=== PATIENT | female | born 1950 | race Caucasian/White ===

== ENCOUNTER 2019-05-29 18:04 | Emergency (ER) | payer MEDICARE, SELFPAY ==
[2019-05-29 18:17] VITALS: BP 152/81; PULSE 80; RESP 18; TEMP 36.6; O2SAT 99
--- NOTE | 2019-05-29 18:30 | ED.URI ---
HPI - URI/Sore Throat General Chief Complaint: Upper Respiratory Infection Stated Complaint: cough/sore throat/drainage/ History of Present Illness HPI Narrative: This is a 69-year-old female comes in complaining of cough congestion eye drainage to bilateral eyes. Patient states that she has congestion and not feeling very well is been going on for 1 to 2 weeks. Related Data Home Medications Medication Instructions Recorded Confirmed furosemide 20 mg tablet 20 mg PO QAM 01/29/19 05/29/19 glimepiride 2 mg tablet 2 mg PO BID tablet 01/29/19 05/29/19 levothyroxine 200 mcg tablet 200 mcg PO DAILY 01/29/19 05/29/19 losartan 100 mg tablet 100 mg PO DAILY 01/29/19 05/29/19 metformin 1,000 mg tablet 1,000 mg PO BID 01/29/19 05/29/19 Allergies Allergy/AdvReac Type Severity Reaction Status Date / Time No Known Allergies Allergy Verified 05/29/19 18:09 Review of Systems Review of Systems: Narrative: CONSTITUTIONAL: Denies fever, chills, or sweats. EYES: Denies visual changes, redness, or discharge. ENT: Reports rhinorrhea, congestion, sore throat, or otalgia. CARDIOVASCULAR:Denies chest pain, palpitations, or edema. RESPIRATORY: Reports cough or dyspnea. GASTROINTESTINAL: Denies abdominal pain, nausea, vomiting, or diarrhea. GENITOURINARY: Denies dysuria or hematuria. SKIN:[Denies rash or itching. MUSCULOSKELETAL:Denies back pain, joint pain, or myalgia. NEUROLOGIC: Denies headache, numbness, or weakness. PSYCHIATRIC:Denies anxiety or depression PMF Past Medical History Medical History (Updated 05/29/19 @ 19:49 by Tanisha Kulkarni NP) Postmenopausal Type 2 diabetes mellitus with diabetic neuropathy Social History Social History Smoking status: Never smoker Alcohol intake: never Gender identity (if verbalized by the patient): Female Comments At time as signature, I have reviewed and agree with nursing past medical, social, surgical and family history. Please see nursing chart for further information. There is no relevant family history pertinent to the presenting complaint. Exam Narrative: Exam Narrative: GENERAL:Well-appearing, well-nourished, and in no acute distress. HEAD:Normocephalic, atraumatic. EYES: PERRLA and EOMI. ENT: Nares clear with congestion, moderate rhinorrhea or epistaxis. Mucous membranes moist. Bilateral eye erythema conjunctivitis with drainage NECK: Supple. CHEST: Clear to auscultation. No respiratory distress. HEART: Regular rate and rhythm. No murmur heard. Normal peripheral pulses. ABDOMEN: Soft, nontender, nondistended, normal active bowel sounds. EXTREMITIES: Normal range of motion. No edema. SKIN: Warm, dry, no rash. NEURO: No focal deficits. Alert and oriented x3. Course Vital Signs Vital signs: Vital Signs Temperature 97.8 F 05/29/19 18:17 Pulse Rate 80 05/29/19 18:17 Respiratory Rate 18 05/29/19 18:17 Blood Pressure 152/81 H 05/29/19 18:17 Pulse Oximetry 99 05/29/19 18:17 Temperature 97.8 F 05/29/19 18:17 Pulse Rate 80 05/29/19 18:17 Respiratory Rate 18 05/29/19 18:17 Blood Pressure 152/81 H 05/29/19 18:17 Pulse Oximetry 99 05/29/19 18:17 MDM - URI/Sore Throat Differential Diagnosis Differential diagnosis: Likely upper respiratory infection, otitis media, sinusitis, viral infection, bronchitis and pharyngitis Discharge Plan Discharge Clinical Impression: Abscessed tooth, Lymphadenopathy Conjunctivitis Qualifiers: Conjunctivitis type: acute Acute conjunctivitis type: unspecified Laterality: bilateral Qualified Code(s): H10.33 - Unspecified acute conjunctivitis, bilateral Patient Disposition: Home, Self-Care Condition: Stable Instructions: Antibiotic Form, Dental Abscess (ED), Allergic Rhinitis (ED) Prescriptions: New fluticasone propionate [Flonase Allergy Relief] 50 mcg/actuation spray,suspension 1 spray NASAL Q12H Qty: 19.8 RF: 0 amoxicillin
== END 2019-05-29 18:51 | disposition home or self-care (01) ==
PROVIDERS: Emergency Provider Nurse Practitioner Family; PCP Internal Medicine
DX: K04.7 Periapical abscess without sinus (principal); R59.1 Generalized enlarged lymph nodes; H10.33 Unspecified acute conjunctivitis, bilateral; E11.42 Type 2 diabetes mellitus with diabetic polyneuropathy; E78.00 Pure hypercholesterolemia, unspecified; I10 Essential (primary) hypertension; Z96.641 Presence of right artificial hip joint; Z96.642 Presence of left artificial hip joint
CPT/HCPCS: 99213; G0463

== ENCOUNTER 2019-09-22 13:25 | Outpatient (CLI) | payer MEDICARE, SELFPAY ==
--- NOTE | ~2019-09-22 | DEXA_ITS ---
Bone Density Report Name: Minnie Lloyd Age: 69 Sex: Female Ethnicity: White Date of : 1950 Indication: postmenopausal; height loss; Referring Provider: Bren Vargas Study: Bone densitometry was performed. Exam Date: September 22, 2019 Accession number: [id number] Bone Density: Region BMD T-score Z-score Classification AP Spine (L1-L4) 1.393 3.1 5.3 Normal Femoral Neck (Left) 1.128 2.5 4.4 Normal Total Hip (Left) 1.280 2.8 4.4 Normal Total Hip Bilateral Avg 1.251 2.6 4.2 Normal Femoral Neck (Right) 1.054 1.8 3.7 Normal Total Hip (Right) 1.221 2.3 3.9 Normal World Health Organization criteria for BMD impression classify patients as: Normal (T-score at or above -1.0), Osteopenia (T-score between -1.0 and -2.5), or Osteoporosis (T-score at or below -2.5). 10-year Fracture Risk: FRAX not reported because: All T-scores for Spine Total, Hip Total, Femoral Neck at or above -1.0 Previous Exams: Region Exam Age BMD T-score BMD Change BMD Change Date g/cm2 vs Baseline vs Previous AP Spine(L1-L4) 09/22/2019 69 1.393 3.1 0.231(19.9%)# 0.231(19.9%)# 04/04/2009 59 1.162 1.0 Total Hip(Left) 09/22/2019 69 1.280 2.8 0.076(6.3%)# 0.076(6.3%)# 04/04/2009 59 1.204 2.2 Total Hip(Right) 09/22/2019 69 1.221 2.3 0.024(2.0%)# 0.024(2.0%)# 04/04/2009 59 1.197 2.1 *Denotes significance at 95% confidence level, LSC for AP Spine = 0.022 g/cm2, LSC for Total Hip = 0.027 g/cm2 Clinical Information Provided by Patient: Has used the following medications: Vitamin D Patient maximum height was 66 Menopause Age: 48 No regular weight bearing exercise Drinks caffeinated beverages Onset of menses at age 10 Number of children 6 Impression: The patient has normal bone mass. No significant bone loss was observed. Discussion: LOW RISK OF FRACTURE; BONE DENSITY IS WELL ABOVE THE MINIMUM DESIRABLE LEVEL AND ABOVE AVERAGE FOR AGE AND SEX AT ALL SKELETAL SITES TESTED. This person's bone density is above expected limits for age and sex. This is rarely clinically significant, but should be pursued if there are significant musculoskeletal complaints. The patient should follow a healthful lifestyle (good nutrition with adequate calcium and vitamin D, and appropriate weight-bearing exercise). Follow-Up: Consider repeating this study in 5 years or sooner if there is some new clinical indication. Reported by: [facility] on 09/22/2019 1:47:00 PM.
== END 2019-09-22 13:26 | disposition home or self-care (01) ==
LOC: ANHIMG 13:26
PROVIDERS: PCP Internal Medicine; Visit Provider Nurse Practitioner
DX: Z78.0 Asymptomatic menopausal state (principal)
CPT/HCPCS: 77080

== ENCOUNTER 2019-11-10 14:10 | Outpatient (CLI) | payer MEDICARE, SELFPAY ==
--- NOTE | ~2019-11-10 | MM_ITS ---
EXAMINATION: MM screening [facility] BI w leo HISTORY: Screening TECHNIQUE: Craniocaudal and mediolateral oblique 3-D tomosynthesis images were obtained and synthetic 2-D images were generated. CAD analysis was submitted and interpreted. COMPARISON: Comparison to multiple prior studies sequentially, with oldest reviewed study dated 07/04. BREAST PARENCHYMAL COMPOSITION: There are scattered areas of fibroglandular density. FINDINGS: There is no evidence of suspicious mass, calcification, or architectural distortion to sugg est malignancy in either breast. There has been no suspicious interval change. IMPRESSION: 1. No mammographic evidence of malignancy. 2. Recommend routine screening mammography in one year. BI-RADS Category 1: Negative Reviewed, dictated and finalized at location A.
[2019-11-10 16:53] LABS: Alanine Aminotransferase 30 U/L (4-35); Albumin Level 4.1 g/dL (3.5-5.1); Alkaline Phosphatase 90 U/L (38-126); Anion Gap 7 mmol/L (8-16); Aspartate Amino Transferase 28 U/L (14-36); Bilirubin,Total 0.4 mg/dL (0.2-1.3); Blood Urea Nitrogen 17 mg/dL (7-17); Calcium 9.5 mg/dL (8.4-10.2); Carbon Dioxide 24 mmol/L (22-30); Chloride 104 mmol/L (98-107); Cholesterol 167 mg/dL (0-200); Estimated Glomerular Filt Rate > 60; Glucose 275 mg/dL (65-105); HDL Direct 49 mg/dL; Potassium 4.4 mmol/L (3.4-5.0); Sodium 135 mmol/L (137-145); Triglycerides 203 mg/dL (<150)
[2019-11-10 17:04] LABS: LDL Cholesterol Direct 87 mg/dL
[2019-11-10 17:09] LABS: Vitamin D 25 Hydroxy 25.5 ng/mL
[2019-11-10 19:47] LABS: Hemoglobin A1C 9.8 % (<5.7)
== END 2019-11-10 14:11 | disposition home or self-care (01) ==
PROVIDERS: Nurse Practitioner; PCP Internal Medicine; Visit Provider Obstetrics & Gynecology
DX: Z12.31 Encounter for screening mammogram for malignant neoplasm of breast (principal); E11.9 Type 2 diabetes mellitus without complications; E55.9 Vitamin D deficiency, unspecified; E78.2 Mixed hyperlipidemia; E03.9 Hypothyroidism, unspecified
CPT/HCPCS: 36415; 77063; 77067; 80053; 80061; 82306; 83036; 84443

== ENCOUNTER 2019-11-25 16:26 | Outpatient (CLI) | payer MEDICARE, SELFPAY ==
--- NOTE | ~2019-11-25 | XR_ITS ---
EXAMINATION: XR thoracic spine 3V DATE: 11/25/2019 17:04 INDICATION: Generalized upper body pain. TECHNIQUE: 3 views of thoracic spine were obtained. COMPARISON: None. FINDINGS: There is 7 degrees dextrocurvature of thoracic spine. Vertebral body heights are normal. Th ere is mildly decreased disc height at multiple levels in lower thoracic spine. There are endplate os teophytes at all levels with bridging at multiple levels, consistent with diffuse idiopathic skeletal hyperostosis (DISH). A calcified left lung nodule and calcified left hilar and mediastinal lymph nod es are consistent with old granulomatous disease. IMPRESSION: 1. Mild thoracic spondylosis. 2. DISH. Reviewed, dictated and finalized at location A.
--- NOTE | ~2019-11-25 | XR_ITS ---
EXAMINATION: XR lumbar spine 2-3V DATE: 11/25/2019 17:04 INDICATION: Generalized upper body pain. TECHNIQUE: 3 views of lumbar spine were obtained. COMPARISON: CT abdomen and pelvis 05/02/2018 FINDINGS: There is 10 degrees levoscoliosis of lumbar spine. Vertebral body heights are normal. There is mildly decreased disc height at L1-L2, severely decreased disc height at L2-L3 and L3-L4, mildly decreased disc height at L4-L5, and severely decreased disc height at L5-S1. There is multilevel penny re facet joint osteoarthritis. IMPRESSION: 1. Severe lumbar spondylosis. 2. Lumbar levoscoliosis. Reviewed, dictated and finalized at location A.
== END 2019-11-25 16:27 | disposition home or self-care (01) ==
PROVIDERS: PCP Internal Medicine; Visit Provider Internal Medicine
DX: M54.9 Dorsalgia, unspecified (principal); M47.814 Spondylosis without myelopathy or radiculopathy, thoracic region; M48.14 Ankylosing hyperostosis [Forestier], thoracic region; M47.816 Spondylosis without myelopathy or radiculopathy, lumbar region; M41.86 Other forms of scoliosis, lumbar region
CPT/HCPCS: 72072; 72100

== ENCOUNTER 2019-12-03 09:10 | Outpatient (CLI) | payer MEDICARE, SELFPAY ==
--- NOTE | ~2019-12-03 | US_ITS ---
EXAMINATION: US right upper quadrant EXAM DATE: 12/03/2019 09:50 INDICATION: Right upper quadrant pain. TECHNIQUE: Multiple grayscale and Doppler images of the abdomen right upper quadrant were obtained (b y a technologist who performed the scan) and subsequently reviewed. Comparison is made to prior exami nation from 04/16/2018. FINDINGS: The pancreatic head and body are normal in appearance. The pancreatic tail is not visualized. Mildl y echogenic liver parenchyma, hepatic steatosis. There are no focal liver lesions identified. Ther e is no evidence of intrahepatic biliary duct dilation. Portal venous flow was seen in the hepatoped al, normal direction and has normal Doppler waveform. No right-sided hydronephrosis. Common bile duct measures 4-5 mm, which is normal. The gallbladder wall is normal in thickness, with expected amount of distention. No sonographic evidence of pericholecystic fluid. There is no cholel ithiases. Technologist performing exam reports patient did not demonstrate sonographic Cross's sign. Please note that this sign is less reliable in patients who have received pain medication. IMPRESSION: 1. Hepatic steatosis. Reviewed, dictated and finalized at location B. IMPRESSION: 1. Hepatic steatosis.
--- NOTE | ~2019-12-03 | XR_ITS ---
EXAMINATION: XR UGI w barium swallow DATE: 12/03/2019 10:13 INDICATION: Nausea. Chronic right abdominal pain. TECHNIQUE: The patient drank thick barium, gas-producing crystals, and thin barium. Fluoroscopy of th e esophagus, stomach, and proximal small bowel was performed. Fluoroscopy exposure time was 1.0 minut es. The total number of images was 286. Total dose-area product was 4.568 Gy-cm^2. COMPARISON: Upper gastrointestinal series 01/27/2018, CT abdomen and pelvis 05/02/2018 FINDINGS: There is no mass or stricture of the esophagus. Esophageal motility is normal. There is no hiatal hernia. There was no gastroesophageal reflux with provocative maneuvers. The stomach shows a n ormal folding pattern. There is a diverticulum of the second portion of the duodenum. IMPRESSION: 1. No etiology for the patient's symptoms. Reviewed, dictated and finalized at location A.
== END 2019-12-03 09:11 | disposition home or self-care (01) ==
LOC: ANHIMG 09:15
PROVIDERS: PCP Internal Medicine; Visit Provider Internal Medicine
DX: R11.0 Nausea (principal); R10.11 Right upper quadrant pain; K76.0 Fatty (change of) liver, not elsewhere classified
CPT/HCPCS: 74240; 76705

== ENCOUNTER 2019-12-11 14:45 | Outpatient (CLI) | payer MEDICARE, SELFPAY ==
--- NOTE | ~2019-12-11 | XR_ITS ---
EXAMINATION: XR wrist RT min 3V DATE: 12/11/2019 15:09 INDICATION: Medial right wrist pain TECHNIQUE: Posteroanterior, ulnar deviation, oblique, and lateral views of the right wrist were obtai diane. COMPARISON: none FINDINGS: Alignment is normal. No fracture. Mild osteoarthritis at the first carpometacarpal and several of the metacarpophalangeal and interphalangeal joints. Lucency with thin sclerotic margins at the base of t he ulnar styloid process and at the palmar/ulnar aspect of the proximal lunate which could represent degenerative cystic change or chronic erosions. Prominent soft tissue swelling along the ulnar side o f the wrist near the extensor carpi ulnaris groove. IMPRESSION: 1. Lucencies at the lunate and ulnar styloid process which could represent degenerative cystic change , chronic erosions significant inflammatory or crystalline arthropathy. The cystic change at the nallely te could also be related to ulnocarpal impaction although ulnar variance appears neutral. 2. Nonspecific soft tissue swelling at the ulnar aspect of the wrist in the region of the ECU groove. 3. Typical distribution of mild polyarticular osteoarthritis at the right hand. Reviewed, dictated and finalized at location A. IMPRESSION: 1. Lucencies at the lunate and ulnar styloid process which could represent dege nerative cystic change, chronic erosions significant inflammatory or crystallin e arthropathy. The cystic change at the lunate could also be related to ulnocar pal impaction although ulnar variance appears neutral. 2. Nonspecific soft tissue swelling at the ulnar aspect of the wrist in the reg ion of the ECU groove. 3. Typical distribution of mild polyarticular osteoarthritis at the right hand.
--- NOTE | ~2019-12-11 | XR_ITS ---
EXAMINATION: XR chest 2V DATE: 12/11/2019 15:09 INDICATION: Cough. Upper back pain. TECHNIQUE: PA and lateral views of the chest were obtained. COMPARISON: Chest radiograph dated 08/03/[address] dated 07/01/2013 FINDINGS: Eron nodule at the posterior sulcus of the left lower lobe and calcified left hilar and mediastinal lymph nodes consistent with old granulomatous disease. Small left paracardial fat pad. No other airs pace opacities, pulmonary edema, pleural effusion or pneumothorax. The cardiomediastinal silhouette i s normal. Mild thoracic dextrocurvature with bridging osteophytes at multiple levels consistent with diffuse idiopathic skeletal hyperostosis (DISH). IMPRESSION: 1. No acute cardiopulmonary disease. Reviewed, dictated and finalized at location A.
== END 2019-12-11 14:46 | disposition home or self-care (01) ==
PROVIDERS: PCP Internal Medicine; Visit Provider Internal Medicine
DX: R05 Cough (principal); M54.6 Pain in thoracic spine; M25.531 Pain in right wrist; M89.9 Disorder of bone, unspecified; M79.89 Other specified soft tissue disorders; M19.031 Primary osteoarthritis, right wrist
CPT/HCPCS: 71046; 73110

== ENCOUNTER 2020-01-12 14:49 | Outpatient (CLI) | payer MEDICARE, SELFPAY ==
--- NOTE | ~2020-01-12 | CT_ITS ---
EXAMINATION: CT abdomen pelvis wo con EXAM DATE: 01/12/2020 15:17 INDICATION: Right-sided abdominal and back pain. TECHNIQUE: Spiral CT of the abdomen and pelvis was performed without contrast. Axial, coronal and sag ittal images were reviewed. The dose-length product (DLP) for this examination was 1280.24 mGy-cm. The exposure was tailored according to patient size (auto mA exposure control), and iterative reconst ruction (ASIR) was used as additional dose reduction technique. Comparison is made to prior examinati on from 11/30/2018. FINDINGS: There is no nephrolithiasis or hydronephrosis. The uterus is unremarkable. The bladder is unremarkable. The liver, spleen, adrenal glands and pancreas are unremarkable. Gallbladder is un remarkable. No biliary obstruction. There is no retroperitoneal or pelvic lymphadenopathy. There is mild scattered arteriosclerotic disease. There is small left inguinal fat-containing hernia. The appendix is normal. Small duodenal diverticulum. The stomach and small bowel are unremarkable. T here is expected amount of colonic stool. No free intraperitoneal gas. The heart is normal in siz e. There are no pericardial or pleural effusions. The lung bases are unremarkable. There are no os teoblastic or osteolytic lesions identified. IMPRESSION: 1. No nephrolithiasis, hydronephrosis or acute intra-abdominal findings. 2. Small left inguinal fat-containing hernia. Reviewed, dictated and finalized at location B. 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
== END 2020-01-12 14:50 | disposition home or self-care (01) ==
PROVIDERS: PCP Internal Medicine; Visit Provider Internal Medicine
DX: R10.9 Unspecified abdominal pain (principal); K40.90 Unilateral inguinal hernia, without obstruction or gangrene, not specified as recurrent
CPT/HCPCS: 74176

== ENCOUNTER 2020-01-24 13:10 | Outpatient (CLI) | payer MEDICARE, SELFPAY ==
--- NOTE | ~2020-01-24 | MR_ITS ---
EXAMINATION: MR thoracic spine wo con EXAM DATE: 01/24/2020 14:14 INDICATION: Pain in thoracic spine. TECHNIQUE: Multi-sequential, multiplanar MR images of the thoracic spine were obtained without contra st. Sagittal T1, T2, T2 fat saturation, axial T2 weighted images reviewed. There is no prior study for comparison. FINDINGS: There is a large midthoracic hemangioma. Mild mid thoracic dextroscoliosis. Several minimal disc bulges, protrusions of the thoracic spine. No central canal stenosis. T3-4 has mild to moderate right neural foraminal stenosis, no more than mild neural foraminal stenosis at other thoracic level s. The spinal cord signal intensity and intrinsic morphology is normal. Paraspinal soft tissue is unr emarkable. Mild diffuse thoracic facet arthropathy. Moderate sized right anterolateral thoracic endpl ate osteophytes. IMPRESSION: Mild to moderate thoracic spondylosis. Reviewed, dictated and finalized at location A. 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
== END 2020-01-24 13:11 | disposition home or self-care (01) ==
PROVIDERS: PCP Internal Medicine; Visit Provider Internal Medicine
DX: M47.894 Other spondylosis, thoracic region (principal)
CPT/HCPCS: 72146

== ENCOUNTER 2020-07-06 19:49 | Emergency (ER) | payer MEDICARE, SELFPAY ==
--- NOTE | ~2020-07-06 | XR_ITS ---
EXAMINATION: XR chest 1V portable DATE: 07/06/2020 21:21 INDICATION: Cough, congestion and chills. TECHNIQUE: frontal view of the chest was obtained. COMPARISON: Chest radiograph dated 12/11/2019 FINDINGS: The lungs remain clear with no focal airspace opacities, pulmonary edema, pleural effusion or pneumot horax. Heart size is normal. Calcified left hilar and mediastinal lymph nodes consistent with old gra nulomatous disease. IMPRESSION: 1. No acute cardiopulmonary disease. Reviewed, dictated and finalized at location A.
[2020-07-06 19:55] VITALS: BP 153/74; PULSE 88; RESP 18; TEMP 36.9; O2SAT 97
[2020-07-06 22:24] VITALS: BP 148/76; PULSE 78; RESP 18; O2SAT 97
--- NOTE | 2020-07-06 22:34 | ED.GENADULT ---
HPI - General Adult General Chief complaint: Upper Respiratory Infection Stated complaint: Cough/ Home Covid Test Positive Time Seen by Provider: 07/06/20 19:58 Source: patient Mode of arrival: ambulatory Limitations: no limitations History of Present Illness HPI narrative: Patient is a 70-year-old female who presents noting for the last several days she has had upper respiratory symptoms with congestion rhinorrhea headache diarrhea nonproductive cough patient states that she had a positive home test for Covid had another test at work which is pending and then presents today for evaluation for concern for possible pneumonia and Covid patient denies tobacco abuse and on arrival does not appear distressed patient is trying [id number] medications with some improvement denies any vomiting. Related Data Home Medications Medication Instructions Recorded Confirmed furosemide 20 mg tablet 20 mg PO QAM 01/29/19 01/06/20 Allergies Allergy/AdvReac Type Severity Reaction Status Date / Time No Known Allergies Allergy Verified 07/06/20 19:58 Review of Systems Review of Systems: All systems reviewed & are unremarkable except as noted in HPI and below PMFSH Past Medical History Medical History Postmenopausal Type 2 diabetes mellitus with diabetic neuropathy Family History Family History Mother Carcinoma of colon Family history of malignant neoplasm of breast in first degree relative Sibling Family history of malignant neoplasm of breast in first degree relative Carcinoma of colon Father Malignant neoplasm of prostate Family history of congestive heart failure Other Diabetes mellitus Family history of cardiovascular disease Family history of kidney disease Family history of malignant neoplasm Hypertension Social History Social History Smoking status: Never smoker Alcohol intake: never Gender identity (if verbalized by the patient): Female Exam Narrative: Exam Narrative: GENERAL: Well-appearing, obese, and in no acute distress. HEAD: Normocephalic, atraumatic. EYES: PERRLA and EOMI. ENT: Nares clear, no rhinorrhea or epistaxis. Mucous membranes moist. Oropharynx without tonsillar hypertrophy exudate or other lesions. NECK: Supple. No adenopathy or masses. CHEST: Clear to auscultation. No respiratory distress. No wheezes rales or rhonchi HEART: Regular rate and rhythm. No murmur heard. EXTREMITIES: Normal range of motion. No edema. SKIN: Warm, dry, no rash. NEURO: No focal deficits. Alert and oriented x3. Cranial nerves II through XII grossly intact PSYCH: Normal mood and affect. Course Course Emergency Course: Patient presented to emergency department with upper respiratory symptoms will be tested for Covid there was no pneumonia seen on chest x-ray she has had no respiratory distress she has normal oxygenation. Patient will be discharged home with follow-up with primary care to obtain her results. Patient afebrile nontoxic-appearing vital signs and ABCs intact and stable. Provided with reasons to return and felt appropriate for outpatient reevaluation Vital Signs Vital signs: Vital Signs Temperature 98.5 F 07/06/20 19:55 Pulse Rate 88 07/06/20 19:55 Respiratory Rate 18 07/06/20 19:55 Blood Pressure 153/74 H 07/06/20 19:55 Pulse Oximetry 97 07/06/20 19:55 Temperature 98.5 F 07/06/20 19:55 Pulse Rate 78 07/06/20 22:24 Respiratory Rate 18 07/06/20 22:24 Blood Pressure 148/76 H 07/06/20 22:24 Pulse Oximetry 97 07/06/20 22:24 Medical Decision Making MDM Narrative Medical decision making narrative: Patient with upper respiratory symptoms will be tested for Covid no pneumonia seen on exam will follow with primary care pending results sent home with an MDI. Patient will be placed on a
[2020-07-06 22:47] VITALS: BP 132/78; PULSE 80; RESP 18; O2SAT 96
[2020-07-07 14:59] LABS: SARS-CoV-2 RNA PCR Positive
== END 2020-07-06 22:47 | disposition home or self-care (01) ==
PROVIDERS: Emergency Medicine Emergency Medical Services; Emergency Provider Emergency Medicine; PCP Internal Medicine
DX: U07.1 COVID-19 (principal); J06.9 Acute upper respiratory infection, unspecified; E11.40 Type 2 diabetes mellitus with diabetic neuropathy, unspecified
CPT/HCPCS: 71045; 99283; C9803; U0003; U0005

== ENCOUNTER 2020-12-21 14:17 | Outpatient (CLI) | payer MEDICARE, SELFPAY ==
--- NOTE | ~2020-12-21 | MM_ITS ---
EXAMINATION: MM screening [facility] BI w leo HISTORY: Screening TECHNIQUE: Craniocaudal and mediolateral oblique 3-D tomosynthesis images were obtained and synthetic 2-D images were generated. CAD analysis was submitted and interpreted. COMPARISON: Comparison to multiple prior studies sequentially, with oldest reviewed study dated 09/2014. BREAST PARENCHYMAL COMPOSITION: There are scattered areas of fibroglandular density. FINDINGS: There is no evidence of suspicious mass, calcification, or architectural distortion to sugg est malignancy in either breast. There has been no suspicious interval change. IMPRESSION: 1. No mammographic evidence of malignancy. 2. Recommend routine screening mammography in one year. BI-RADS Category 1: Negative Reviewed, dictated and finalized at location A.
== END 2020-12-21 14:18 | disposition home or self-care (01) ==
LOC: ANHIMG 14:19
PROVIDERS: PCP Internal Medicine; Visit Provider Obstetrics & Gynecology
DX: Z12.31 Encounter for screening mammogram for malignant neoplasm of breast (principal)
CPT/HCPCS: 77063; 77067

== ENCOUNTER 2021-01-15 00:11 | Day surgery (SDC) | payer MEDICARE, SELFPAY ==
[2020-12-20 14:34] VITALS: BMI 40.4
[2021-01-15 10:32] VITALS: BP 182/76; PULSE 80; RESP 18; TEMP 36.8; O2SAT 96
--- NOTE | 2021-01-15 10:41 | WPDGICN ---
Assessment and Plan Assessment and plan (1) Family hx of colon cancer: Code(s): Z80.0 - Family history of malignant neoplasm of digestive organs Status: Acute Assessment and Plan: Patient has a family history of colon cancer in both mother sister in knees. Plan is for surveillance colonoscopy now on at least a 5 year intervals in the future. GI Consult Note Consult date/time: 01/15/21 10:41 HPI: Minnie Lloyd is a 70 year old female Presents for screening colonoscopy. Her last exam was 5 years ago. Family history is significant both mother, sister, and niece have had colon cancer. Patient reports that her own weight appetite and bowel movements are normal. She denies abdominal pain. She has had no bleeding. Neoplasia screening to be performed today. Review of Systems Review of Systems: All systems reviewed & are unremarkable except as noted in HPI and below PMFSH Past Medical History Medical History Postmenopausal Type 2 diabetes mellitus with diabetic neuropathy Family History Family History Mother Carcinoma of colon Family history of malignant neoplasm of breast in first degree relative Sibling Family history of malignant neoplasm of breast in first degree relative Carcinoma of colon Father Malignant neoplasm of prostate Family history of congestive heart failure Other Diabetes mellitus Family history of cardiovascular disease Family history of kidney disease Family history of malignant neoplasm Hypertension Social History Social History (Updated 11/23/20 @ 12:56 by Catherine Jackson MA) Smoking status: Never smoker Second hand tobacco smoke exposure: Yes Alcohol intake: never Substance use: never Living arrangements: alone Gender identity (if verbalized by the patient): Female Spiritual care concerns: No Meds Home Medications and Allergies Home Medications Medication Instructions Recorded Confirmed Type lancets 31 gauge #100 each 08/10/19 11/26/20 Rx glimepiride 2 mg tablet 2 mg PO BID #180 tablet 01/06/20 12/20/20 Rx empagliflozin 10 mg-linagliptin 5 1 tablet PO QAM #90 tablet 09/05/20 12/20/20 Rx mg tablet levothyroxine 200 mcg tablet 200 mcg PO DAILY #90 tablet 10/04/20 12/20/20 Rx blood sugar diagnostic 11/23/20 11/26/20 History losartan 100 mg PO DAILY 12/20/20 12/20/20 History metformin 1,000 mg PO BID 12/20/20 12/20/20 History ibuprofen 800 mg tablet 800 mg PO TID PRN #90 tablet 12/21/20 Rx tramadol 50 mg tablet 50 mg PO Q6H PRN #60 tablet 12/21/20 Rx Allergies Allergy/AdvReac Type Severity Reaction Status Date / Time No Known Allergies Allergy Verified 01/15/21 10:31 Vital Signs Vital Signs - 24 hr 01/15/21 10:32 Temperature 98.2 F Pulse Rate 80 Respiratory Rate 18 Blood Pressure 182/76 H Pulse Oximetry 96 Exam Narrative: Physical exam reveals patient to be alert. Vital signs stable. HEENT exam is unremarkable. Patient is anicteric. Lungs are clear to auscultation and percussion. Heart is without murmur or extra sounds. Abdominal exam bowel sounds are present soft nontender with no organomegaly. Digital external rectal exam is normal.
[2021-01-15] MEDS: LACTATED RINGERS 1,000 ML 150 ML IV CONT (10:42)
[2021-01-15 10:46] LABS: Glucose Point of Care 261 mg/dl (65-105)
--- NOTE | 2021-01-15 10:48 | WPDANESEPPF ---
Anes - Initial Pre Proc Eval Procedure: Operation Date: 01/15/21 11:15 Proposed Procedures p Screening Colonoscopy - Wan Rodriguez MD Date/Time: 01/15/21 10:48 Surgeon: Wan Rodriguez MD Pre Op Diagnosis: family hx of colon ca, neoplasm screening Patient Data Age: 70 Gender: F Height: 1.63 m Weight: 105.4 kg Last Vital Signs Temp 36.8 C 01/15/21 10:32 Pulse 80 01/15/21 10:32 Resp 18 01/15/21 10:32 BP 182/76 H 01/15/21 10:32 Pulse Ox 96 01/15/21 10:32 Allergies Allergy/AdvReac Type Severity Reaction Status Date / Time No Known Allergies Allergy Verified 01/15/21 10:31 Home Medications Medication Instructions Recorded Confirmed Type lancets 31 gauge #100 each 08/10/19 01/15/21 Rx glimepiride 2 mg tablet 2 mg PO BID #180 tablet 01/06/20 01/15/21 Rx empagliflozin 10 mg-linagliptin 5 1 tablet PO QAM #90 tablet 09/05/20 01/15/21 Rx mg tablet levothyroxine 200 mcg tablet 200 mcg PO DAILY #90 tablet 10/04/20 01/15/21 Rx blood sugar diagnostic 11/23/20 01/15/21 History losartan 100 mg PO DAILY 12/20/20 01/15/21 History metformin 1,000 mg PO BID 12/20/20 01/15/21 History ibuprofen 800 mg tablet 800 mg PO TID PRN #90 tablet 12/21/20 01/15/21 Rx tramadol 50 mg tablet 50 mg PO Q6H PRN #60 tablet 12/21/20 01/15/21 Rx Laboratory Tests 01/15/21 10:43 POC Capillary Glucose 261 mg/dl H mg/dl (65-105) Patient hx anesthesia problems: none Family hx anesthesia problems: none Results Review: All pre-operative results and documents have been reviewed as part of the pre-operative evaluation. COUNTS INCLUDE 234 BEDS AT THE [facility] Past Medical History Medical History Postmenopausal Type 2 diabetes mellitus with diabetic neuropathy Family History Family History Mother Carcinoma of colon Family history of malignant neoplasm of breast in first degree relative Sibling Family history of malignant neoplasm of breast in first degree relative Carcinoma of colon Father Malignant neoplasm of prostate Family history of congestive heart failure Other Diabetes mellitus Family history of cardiovascular disease Family history of kidney disease Family history of malignant neoplasm Hypertension Social History Social History Smoking status: Never smoker Second hand tobacco smoke exposure: Yes Alcohol intake: never Substance use: never Living arrangements: alone Gender identity (if verbalized by the patient): Female Spiritual care concerns: No Anes - Eval Final PreProcedure Day of Procedure 01/15/21 10:48 Patient weight: morbidly obese Heart: regular rate and rhythm Lungs: clear to auscultation Airway: Mallampati scale class II Neurological: alert and oriented Last oral intake: >/= 8 hours ASA classification: III Emergent: no Anesthetic plan: proceed Anesthesia type and monitoring: general GIVS and standard monitoring Results Review: All pre-operative results and documents have been reviewed as part of the pre-operative evaluation. Informed Consent: The patient's anesthetic plan and its attendant risks and benefits were discussed with the patient/family/POA. Questions were solicited and answers provided to the satisfaction of the patient/family/POA.
[2021-01-15 11:04] VITALS: BP 115/62; PULSE 73; RESP 19; O2SAT 94
[2021-01-15 11:14] VITALS: BP 120/85; PULSE 73; RESP 18; O2SAT 97
[2021-01-15 11:24] VITALS: BP 161/83; PULSE 71; RESP 22; O2SAT 98
== END 2021-01-15 11:51 | disposition home or self-care (01) ==
PROVIDERS: PCP Internal Medicine; Visit Provider Internal Medicine Gastroenterology
PROC: 0DJD8ZZ Inspection of Lower Intestinal Tract, Via Natural or Artificial Opening Endoscopic (ICD-10-PCS; CPT 45378; principal; 2021-01-15 11:15)
DX: Z12.11 Encounter for screening for malignant neoplasm of colon (principal); Z80.0 Family history of malignant neoplasm of digestive organs; K64.8 Other hemorrhoids; K63.5 Polyp of colon; E03.9 Hypothyroidism, unspecified; Z79.84 Long term (current) use of oral hypoglycemic drugs; E11.40 Type 2 diabetes mellitus with diabetic neuropathy, unspecified; E66.01 Morbid (severe) obesity due to excess calories; Z68.39 Body mass index [BMI] 39.0-39.9, adult
CPT/HCPCS: 45385; 82948; 88305; J2704; J7120

== ENCOUNTER → 2021-05-21 15:39 | Outpatient (CLI) | payer MEDICARE, SELFPAY ==
--- NOTE | ~2021-05-21 | XR_ITS ---
XR ankle RT 2V DATE: 05/21/2021 16:16 INDICATION: Right ankle and foot pain TECHNIQUE: 2 views COMPARISON: None FINDINGS: There is very prominent plantar and posterior calcaneal enthesopathy without erosive change or periostitis. There is osteoarthritic change at the tibiotalar joint. No fracture or dislocation of the ankle or di sruption of the ankle mortise is detected. No periosteal reaction or bone destruction. IMPRESSION: Tibiotalar osteoarthritis Prominent plantar and posterior calcaneal enthesopathy Reviewed, dictated and finalized at location A.
--- NOTE | ~2021-05-21 | XR_ITS ---
XR foot RT min 3V DATE: 05/21/2021 16:16 INDICATION: Right foot pain TECHNIQUE: 4 views COMPARISON: None FINDINGS: There is dorsal soft tissue swelling of the forefoot. There is a prominent plantar and posterior calcaneal enthesopathy without evidence of erosive change or periosteal reaction. There is tibiotalar osteoarthritis. There is organized linear periosteal reaction along the lateral aspect of the proximal to mid shaft o f the fourth metatarsal bone likely due to chronic stress fracture. No recent fracture or dislocation . No bone destruction is evident. No erosive change. Mild osteophytic change at the first, second and third metatarsophalangeal joints. IMPRESSION: Dorsal soft tissue swelling of the forefoot Chronic stress fracture of fourth metatarsal shaft Mild osteoarthritis at first through third metatarsophalangeal joints and tibiotalar joint Prominent plantar and posterior calcaneal enthesopathy Reviewed, dictated and finalized at location A. IMPRESSION: Dorsal soft tissue swelling of the forefoot Chronic stress fracture of fourth metatarsal shaft Mild osteoarthritis at first through third metatarsophalangeal joints and tibio talar joint Prominent plantar and posterior calcaneal enthesopathy
== END ==
PROVIDERS: PCP Internal Medicine; Visit Provider Nurse Practitioner
DX: M19.071 Primary osteoarthritis, right ankle and foot (principal); M77.31 Calcaneal spur, right foot
CPT/HCPCS: 73600; 73630

== ENCOUNTER 2022-01-03 15:38 | Outpatient (CLI) | payer MEDICARE, SELFPAY ==
--- NOTE | ~2022-01-03 | MM_ITS ---
EXAMINATION: MM screening louis BI w leo HISTORY: Screening mammogram, family history of breast cancer in her mother and sister. TECHNIQUE: Craniocaudal and mediolateral oblique 3-D tomosynthesis images were obtained and synthetic 2-D images were generated. CAD analysis was submitted and interpreted. COMPARISON: 12/21/2020, 11/10/2019, 10/20/2018 BREAST PARENCHYMAL COMPOSITION: There are scattered areas of fibroglandular density. FINDINGS: Scattered benign-appearing calcifications are present. No suspicious mass, calcification, o r architectural distortion are identified in either breast to suggest malignancy. There has been no s uspicious interval change. IMPRESSION: 1. No mammographic evidence of malignancy. 2. Recommend routine screening mammography in one year. BI-RADS Category 2: Benign finding(s). Reviewed, dictated and finalized at location A.
== END 2022-01-03 15:39 | disposition home or self-care (01) ==
PROVIDERS: PCP Internal Medicine; Visit Provider Obstetrics & Gynecology
DX: Z12.31 Encounter for screening mammogram for malignant neoplasm of breast (principal)
CPT/HCPCS: 77063; 77067

== ENCOUNTER 2022-04-22 16:03 | Outpatient (CLI) | payer OTHER, SELFPAY ==
--- NOTE | ~2022-04-22 | XR_ITS ---
EXAMINATION: XR chest 2V Exam Date/Time: 04/22/2022 16:18 [employer] [employer] HISTORY: Z01.818 - Encounter for other preprocedural examination Comparison: 07/06/2020. RESULT: Lines, tubes, and devices: None. Lungs and pleura: Clear. Calcified left lower lobe granuloma. Cardiomediastinal silhouette: Stable. Calcified left hilar and mediastinal nodes. Other: No acute osseous or upper abdominal finding. IMPRESSION: No acute cardiopulmonary process. Reviewed, dictated and finalized at location K. [facility]
--- NOTE | 2022-04-22 16:35 | ECG_ITS ---
Measurements Intervals [place] Rate: 60 P: 64 TX: 162 QRS: -19 QRSD: 80 T: 56 QT: 417 QTc: 417 Interpretive Statements SINUS RHYTHM NO PREVIOUS ECG AVAILABLE FOR COMPARISON Electronically Signed On 04-23-2022 11:25:47 PROMOTIONAL REPRESENTATIVE by Amy Magallon M.D.
== END 2022-04-22 16:04 | disposition home or self-care (01) ==
PROVIDERS: PCP Internal Medicine; Visit Provider Nurse Practitioner Family
DX: Z01.818 Encounter for other preprocedural examination (principal)
CPT/HCPCS: 71046; 93005

== ENCOUNTER 2022-07-15 06:30 | Emergency (ER) | payer OTHER, SELFPAY ==
--- NOTE | ~2022-07-15 | XR_ITS ---
EXAMINATION: XR femur LT min 2V DATE: 07/15/2022 07:51 INDICATION: Fall. TECHNIQUE: 2 views of left femur on 5 radiographs were obtained. COMPARISON: Left knee radiographs 04/25/2008 FINDINGS: There is a total left knee arthroplasty with patellar resurfacing in near-anatomic alignmen t. No periprosthetic lucency to suggest loosening or infection. No fracture. There is severe left hip osteoarthritis. There is a small knee joint effusion. IMPRESSION: 1. Total left knee arthroplasty in near-anatomic alignment. 2. Small left knee joint effusion. 3. Severe left hip osteoarthritis. Reviewed, dictated and finalized at location A.
--- NOTE | ~2022-07-15 | XR_ITS ---
EXAMINATION: XR_CERV2-3V_CR DATE: 07/15/2022 07:51 INDICATION: Neck pain. TECHNIQUE: 3 views of cervical spine were obtained. COMPARISON: None. FINDINGS: There is 2 mm retrolisthesis of C5 on C6 and 2 mm anterolisthesis of C6 on C7 and C7 on T1. Vertebral body heights are normal. There is mildly decreased disc height at C3-C4 and C4-C5 and penny rely decreased disc height at C5-C6. There is multilevel facet joint osteoarthritis, severe at multip le levels. There is mild central canal stenosis at C5-C6 and C6-C7. No prevertebral soft tissue swell ing. IMPRESSION: 1. Severe cervical spondylosis. Reviewed, dictated and finalized at location A.
--- NOTE | ~2022-07-15 | XR_ITS ---
EXAMINATION: XR knee RT 3V DATE: 07/15/2022 07:51 INDICATION: Fall. TECHNIQUE: 3 views of right knee were obtained. COMPARISON: Radiographs 05/22/2009 FINDINGS: There is a total right knee arthroplasty with patellar resurfacing in near-anatomic alignme nt. No periprosthetic lucency to suggest loosening or infection. No fracture. No knee joint effusion. IMPRESSION: 1. Total right knee arthroplasty in near-anatomic alignment. Reviewed, dictated and finalized at location A.
--- NOTE | ~2022-07-15 | XR_ITS ---
EXAMINATION: XR wrist LT min 3V DATE: 07/15/2022 07:51 INDICATION: Left wrist pain. Fall. TECHNIQUE: 4 views of left wrist were obtained. COMPARISON: Left wrist radiographs 01/27/2018 FINDINGS: Bone alignment is normal. No acute fracture. There is an old fracture deformity of proximal pole of scaphoid. There is mild osteoarthritis of triscaphe joint and moderate osteoarthritis of fir st carpometacarpal joint. There is mild osteoarthritis of some of the metacarpophalangeal joints. The re are dystrophic calcifications distal to ulna. IMPRESSION: 1. Polyarticular osteoarthritis. Reviewed, dictated and finalized at location A.
[2022-07-15 06:50] VITALS: BP 154/76; PULSE 68; RESP 15; TEMP 36.7; O2SAT 96
--- NOTE | 2022-07-15 07:12 | ED.FALL ---
HPI - Fall General Chief Complaint: Fall Stated Complaint: fell right knee, shoulder, wrist pain Time Seen by Provider: 07/15/22 06:58 History of Present Illness HPI Narrative: This is a 72-year-old female with past history of hypertension and diabetes, who presents the emergency department after a ground-level fall. Patient states she was walking in the parking lot when she tripped, landing on the right knee and left wrist. She complains of 8/10 dull right knee pain and left wrist pain. She states she was able to walk with assistance after the fall. She denies chest pain, shortness of breath, palpitations or lightheadedness prior to or since the fall. Related Data Home Medications Medication Instructions Recorded Confirmed blood sugar diagnostic 11/23/20 05/02/22 biotin 10 mg tablet 10 mg PO DAILY 01/18/22 05/02/22 gabapentin 300 mg capsule 300 mg PO QHS 07/15/22 Allergies Allergy/AdvReac Type Severity Reaction Status Date / Time No Known Allergies Allergy Verified 07/15/22 06:31 Review of Systems Review of Systems: CONSTITUTIONAL: Denies fever, chills, or sweats. CARDIOVASCULAR: Denies chest pain, palpitations, or edema. RESPIRATORY: Denies cough or dyspnea. GASTROINTESTINAL: Denies abdominal pain, nausea, vomiting, or diarrhea. GENITOURINARY: Denies dysuria or hematuria. MUSCULOSKELETAL: Right knee pain, left wrist pain, left thigh pain denies back pain, or myalgia. NEUROLOGIC: Denies headache, numbness, dizziness, or weakness. PSYCHIATRIC: Denies anxiety or depression. [facility] Past Medical History Medical History Essential (primary) hypertension Hypothyroidism Mixed hyperlipidemia Postmenopausal Type 2 diabetes mellitus with diabetic neuropathy Family History Family History Mother Carcinoma of colon Family history of malignant neoplasm of breast in first degree relative Sibling Family history of malignant neoplasm of breast in first degree relative Carcinoma of colon Father Malignant neoplasm of prostate Family history of congestive heart failure Other Diabetes mellitus Family history of cardiovascular disease Family history of kidney disease Family history of malignant neoplasm Hypertension Social History Social History Smoking status: Never smoker Second hand tobacco smoke exposure: Yes Alcohol intake: never Substance use: never Substance use type: does not use Lack of Transportation: No Lack of Food: Sometimes True Current Housing: I Have Housing Concerned About Future Housing: No Difficulty Paying Gas/Electric Bills: YES Difficulty Paying for Meds: YES Currently Unemployed: No Education: High School Diploma/GED Difficulty w/ Childcare or Family Care: No Living arrangements: alone Gender identity (if verbalized by the patient): Female Spiritual care concerns: No Exam Narrative: GENERAL: Well-developed, well-nourished, and in no acute distress. HEAD: Normocephalic, atraumatic. EYES: PERRLA and EOMI. ENT: Nares clear, no rhinorrhea or epistaxis. Mucous membranes moist. Oropharynx without tonsillar hypertrophy exudate or other lesions. NECK: Supple. No adenopathy or masses. No carotid bruits or JVD. No midline spine tenderness to palpation, no step-off or crepitus CHEST: Clear to auscultation. No respiratory distress. No wheezes rales or rhonchi HEART: Regular rate and rhythm. No murmur heard. Normal peripheral pulses. ABDOMEN: Soft, nontender, nondistended, normal active bowel sounds. BACK: No midline spine tenderness to palpation, no step-off or crepitus EXTREMITIES: Mild ecchymosis noted over the anterior aspect of the right knee, mild tenderness to palpation over the anterior aspect of the right knee. Normal range of motion of all limbs. No edema. SKIN: Warm, dry, no
[2022-07-15] MEDS: ACETAMINOPHEN 500 MG TABLET 1000 MG PO (07:18)
== END 2022-07-15 08:18 | disposition home or self-care (01) ==
PROVIDERS: Emergency Provider Preventive Medicine Aerospace Medicine; PCP Family Medicine
DX: S80.01XA Contusion of right knee, initial encounter (principal); M25.532 Pain in left wrist; I10 Essential (primary) hypertension; E03.9 Hypothyroidism, unspecified; E78.5 Hyperlipidemia, unspecified; E11.9 Type 2 diabetes mellitus without complications; W01.0XXA Fall on same level from slipping, tripping and stumbling without subsequent striking against object, initial encounter
CPT/HCPCS: 72040; 73110; 73552; 73562; 99284; A9270

== ENCOUNTER 2022-07-31 14:15 | Outpatient (CLI) | payer OTHER, SELFPAY ==
--- NOTE | ~2022-07-31 | XR_ITS ---
Right wrist Technique: PA, oblique, lateral, and ulnar deviation views were obtained. Clinical History: Pain Findings: No acute fracture or dislocation is seen. There is minimal degenerative change of the STT a rticulations and first CMC joint.. There are mild degenerative changes of the first metacarpal phalan geal joint and interphalangeal joint of the thumb. Soft tissues are unremarkable. Impression: Osteoarthritic changes involving the thumb, first CMC joint, and STT articulations, as detailed above . Reviewed, dictated and finalized at location M. Impression: Osteoarthritic changes involving the thumb, first CMC joint, and STT articulati ons, as detailed above.
--- NOTE | ~2022-07-31 | XR_ITS ---
Left wrist Technique: PA, oblique, lateral, and ulnar deviation views were obtained. Clinical History: Pain COMPARISON: 07/15/2022 Findings: No acute fracture or dislocation is seen. Questionable small erosion at the proximal pole o f the scaphoid. Osseous alignment is anatomic. There is mild degenerative change of the interphalange al joint of the thumb and the first metacarpophalangeal joint. Probable focal chondrocalcinosis of th e TFCC versus other soft tissue mineralization this region. Impression: No acute abnormality seen. Questional focal erosion versus chronic posttraumatic change at the proximal scaphoid. Degenerative changes, predominantly involving the thumb, as detailed above. Nonspecific soft tissue calcification/mineralization the region of the TFCC. Reviewed, dictated and finalized at location . Impression: No acute abnormality seen. Questional focal erosion versus chronic posttraumatic change at the proximal sc aphoid. Degenerative changes, predominantly involving the thumb, as detailed above. Nonspecific soft tissue calcification/mineralization the region of the TFCC.
== END 2022-07-31 14:16 | disposition home or self-care (01) ==
PROVIDERS: PCP Family Medicine; Visit Provider Nurse Practitioner Family
DX: M19.031 Primary osteoarthritis, right wrist (principal); M19.032 Primary osteoarthritis, left wrist
CPT/HCPCS: 73110

== ENCOUNTER 2022-08-02 16:27 | Outpatient (CLI) | payer OTHER, SELFPAY ==
--- NOTE | ~2022-08-02 | XR_ITS ---
EXAMINATION: XR shoulder LT min 2V DATE: 08/02/2022 16:55 INDICATION: Left shoulder pain. TECHNIQUE: 4 views of left shoulder were obtained. COMPARISON: None. FINDINGS: Bone alignment is normal. No fracture. There is mild osteoarthritis of glenohumeral joint a nd acromioclavicular joint. IMPRESSION: 1. Mild polyarticular osteoarthritis. Reviewed, dictated and finalized at location E.
--- NOTE | ~2022-08-02 | XR_ITS ---
EXAMINATION: XR shoulder RT min 2V DATE: 08/02/2022 16:55 INDICATION: Right shoulder pain. TECHNIQUE: 4 views of right shoulder were obtained. COMPARISON: Right shoulder radiographs 04/16/18 FINDINGS: Bone alignment is normal. No fracture. There is mild osteoarthritis of glenohumeral joint a nd acromioclavicular joint. IMPRESSION: 1. Mild particular osteoarthritis. Reviewed, dictated and finalized at location E.
== END 2022-08-02 16:28 | disposition home or self-care (01) ==
PROVIDERS: PCP Family Medicine; Visit Provider Nurse Practitioner Family
DX: M19.011 Primary osteoarthritis, right shoulder (principal); M19.012 Primary osteoarthritis, left shoulder
CPT/HCPCS: 73030

== ENCOUNTER 2022-08-08 14:45 | Outpatient (RCR) | payer OTHER, SELFPAY ==
[2022-05-30 13:12] VITALS: BMI 39.9
[2022-05-30 14:45] VITALS: BMI 39.9
== END 2022-08-19 08:54 | disposition home or self-care (01) ==
LOC: ANHDMC 14:45
PROVIDERS: PCP Internal Medicine; Visit Provider Nurse Practitioner Family
DX: E11.65 Type 2 diabetes mellitus with hyperglycemia (principal); E11.40 Type 2 diabetes mellitus with diabetic neuropathy, unspecified; Z71.3 Dietary counseling and surveillance; Z71.89 Other specified counseling
CPT/HCPCS: 97802; G0108

== ENCOUNTER 2022-11-21 14:31 | Outpatient (CLI) | payer OTHER, SELFPAY ==
--- NOTE | ~2022-11-21 | MR_ITS ---
EXAMINATION: MR shoulder RT wo con DATE: 11/21/2022 16:05 INDICATION: Right shoulder pain. TECHNIQUE: Magnetic resonance imaging (MRI) of the right shoulder was performed without intravenous c ontrast. Sequences included axial PD-weighted FS FSE, coronal oblique PD-weighted FS FSE and T2-weigh alesha FS FSE, and sagittal oblique T2-weighted FS FSE and T1-weighted FSE. COMPARISON: Right shoulder radiographs 08/02/2022 FINDINGS: Coracoacromial arch: The acromion undersurface is curved in morphology with anterior hook (type III). There is severe acro mioclavicular joint osteoarthritis. There is mild subacromial/subdeltoid bursitis. Rotator cuff: There is severe supraspinatus and infraspinatus tendinopathy. Teres minor tendon is normal. There is severe subscapularis tendinopathy. No tear. There is mild fatty atrophy of supraspinatus muscle belly . Biceps tendon and glenoid labrum: Biceps tendon is in bicipital groove. There is severe intra-articular biceps tendinopathy. There is t earing of superior and posterior labrum (SLAP tear). Fluid: There is a small glenohumeral joint effusion. Bones/cartilage: Femoral cartilage is normal. There is shallow partial-thickness cartilage loss involving central ricky oid. There is mild subchondral edema-like marrow signal intensity involving posterior glenoid. There is a partial tear of coracoclavicular ligament. IMPRESSION: 1. Severe rotator cuff tendinopathy. No tear. 2. Mild glenohumeral joint chondrosis. SLAP tear. 3. Severe acromioclavicular joint osteoarthritis. 4. Mild subacromial/subdeltoid bursitis. 5. Small glenohumeral joint effusion. 6. Severe biceps tendinopathy. 7. Partial tear of coracoclavicular ligament. Reviewed, dictated and finalized at location A.
--- NOTE | ~2022-11-21 | MR_ITS ---
EXAMINATION: MR wrist LT wo con DATE: 11/21/2022 15:27 INDICATION: Unspecified injury of left wrist. Left wrist pain. TECHNIQUE: Magnetic resonance imaging (MRI) of the wrist was performed without intravenous contrast. Sequences performed include coronal T1-weighted FSE, coronal PD-weighted FS FSE, axial PD-weighted FS FSE, axial PD-weighted FSE, sagittal PD-weighted FSE, and sagittal PD-weighted FS FSE. COMPARISON: Left wrist radiographs 07/31/2022 FINDINGS: Intrinsic ligaments: There is a partial tear of scapholunate ligament. Lunotriquetral ligament is intact. Triangular fibrocartilage complex (TFCC): There is a full-thickness perforation of triangular fibrocartilage. Extensor wrist: The extensor tendons are normal. There is magic ankle artifact involving the extensor tendons. Flexor wrist: The flexor tendons are normal. The median nerve is normal. Guyon's canal: The ulnar nerve is normal. Bones/other: Bone alignment is normal. No fracture. There is degenerative cystic change in proximal lunate and tri quetrum and proximal scaphoid. There is mild osteoarthritis of first carpometacarpal joint. There is a small effusion of distal radioulnar joint. There is a skin marker superficial to distal ulna. There is a 7 x 14 x 8 mm ganglion cyst palmar to radioscaphoid joint. IMPRESSION: 1. Full-thickness perforation of triangular fibrocartilage. 2. Mild polyarticular osteoarthritis. 3. Partial tear of scapholunate ligament. 4. Small effusion of distal radioulnar joint. 5. Ganglion cyst palmar to radioscaphoid joint. Reviewed, dictated and finalized at location A.
== END 2022-11-21 14:32 ==
PROVIDERS: PCP Family Medicine; Visit Provider Family Medicine
DX: M19.011 Primary osteoarthritis, right shoulder (principal); M75.51 Bursitis of right shoulder; M25.411 Effusion, right shoulder; M19.032 Primary osteoarthritis, left wrist; M25.432 Effusion, left wrist; S63.391A Traumatic rupture of other ligament of right wrist, initial encounter; X58.XXXA Exposure to other specified factors, initial encounter
CPT/HCPCS: 73221

== ENCOUNTER 2022-12-30 15:15 | Outpatient (RCR) | payer OTHER, SELFPAY ==
--- NOTE | 2022-11-25 14:17 | OPREHPOC ---
Outpatient Therapy Plan of Care This is a Multidisciplinary Plan of Care that may contain components documented by all disciplines (PT, OT, and ST.) PT Problem 1 PT Problem #1 Knowledge Deficit PT Goal 1 Goal Hawkins with HEP Target Visit 4 PT Problem 2 PT Problem #2 Pain PT Goal 1 Goal Reduce L hip pain with walking 100 feet to 2/10 PT Problem 3 PT Problem #3 Impaired Range of Motion PT Goal 1 Goal Demonstrate 30 degrees of jerrod hip abduction indicating capsular mobility for squatting and walking Target Visit 8 PT Goal 2 Goal Improve L hip internal rotation to 20 degrees to improve terminal stance of gait Target Visit 8 PT Problem 4 PT Problem #4 Impaired Gait PT Goal 1 Goal Patient will ambulate with even stride length bilaterally independent of AD
--- NOTE | 2022-11-25 14:18 | PTOPEVAL1 ---
Assessment and note entered by Romeo Lafleur, PT Evaluation Information Assessment Status Evaluation Diagnosis Left thigh pain, R shoulder pain Onset 07/15/22 Subjective Information Reports that she broke her fall with her right arm . She was having a lot of leg and shoulder pain. She still has pain lingering in her legs and shoulder. Has reports indicating OA in left hip. She uses a cane for long distance but nothing around home. Reports that she has had a few falls out in the yard but none within the past year other than this one. Takes a lot of Ibuprofen for pain. She worked at [employer] when she fell. 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 Reported Pain Level Pain Score 4: Self Report Assessment PT Clinical Summary Patient presents with significantly debilitation L hip mobility, R shoulder weakness as well as L shoulder weakness), altered gait, and gait instability. Will benefit from skilled therapy to address these deficits for maximized functional return. Plan of Care Interventions Gait Training,Manual Therapy,Neuro Re-education, Patient/Caregiver Education,Therapeutic Activities, Therapeutic Exercise PT Services Indicated Yes These treatments will address the objective and functional deficits as defined above. The patient will be advanced safely and appropriately in order for the patient to progress towards his/her prior level of function. Additional exercises will be introduced and as well as a comprehensive home exercise program upon discharge, if needed, ?to ensure carryover of functional gains achieved in the clinic. This treatment plan has been reviewed and agreement upon by the patient.
--- NOTE | 2022-11-25 15:24 | OTOPEVAL1 ---
Assessment and note entered by Jose Eduardo Tucker, SIMONA/[place], CHT Evaluation Information Assessment Status Evaluation Diagnosis Left wrist pain Subjective Information Patient sustained a fall onto outstretched hands on 07/15/22 and has been having left wrist pain ever since. Initial x-rays are negative for fractures. 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 She sometimes wears a wrist brace when she's having pain, but she states she lost her brace a week ago. Patient reports that functionally she is able to use her hand to do dishes, laundry, lift heavy bags of pet food, etc. She reports she just gets it done and pays for it later . Reported Pain Level Pain Score Left wrist: 10 Additional Pain Score Comments Patient reports taking ibuprofen daily. She reports with medication her pain gets down to a manageable level, but the wrist does get up to 10/ 10. Assessment OT Clinical Summary Patient referred to outpatient OT with dx of left wrist pain sustained during a fall 4 months ago. She presents with residual weakness and pain which is limiting return to functional use of the left hand for ADL tasks. Skilled OT indicated to facilitate optimal functional use of her left hand through therapeutic exercise, therapeutic activities, modalities, and HEP instruction/ progression. Plan of Care Interventions Therapeutic Exercise,Manual Therapy,Therapeutic Activities,Hot Pack/Cold Pack OT Services Indicated Yes Treatment Frequency and 2x/week for 4 weeks Duration These treatments will address the objective and functional deficits as defined above. The patient will be advanced safely and appropriately in order for the patient to progress towards his/her prior level of function. Additional exercises will be introduced and as well as a comprehensive home exercise program upon discharge, if needed, ?to ensure carryover of functional gains achieved in the clinic. This treatment plan has been reviewed and agreement upon by the patient.
--- NOTE | 2022-11-25 15:25 | OPREHPOC ---
Outpatient Therapy Plan of Care This is a Multidisciplinary Plan of Care that may contain components documented by all disciplines (PT, OT, and ST.) PT Problem 1 PT Problem #1 Knowledge Deficit PT Goal 1 Goal [place] with HEP Target Visit 4 PT Problem 2 PT Problem #2 Pain PT Goal 1 Goal Reduce L hip pain with walking 100 feet to 2/10 PT Problem 3 PT Problem #3 Impaired Range of Motion PT Goal 1 Goal Demonstrate 30 degrees of jerrod hip abduction indicating capsular mobility for squatting and walking Target Visit 8 PT Goal 2 Goal Improve L hip internal rotation to 20 degrees to improve terminal stance of gait Target Visit 8 PT Problem 4 PT Problem #4 Impaired Gait PT Goal 1 Goal Patient will ambulate with even stride length bilaterally independent of AD OT Problem 1 OT Problem #1 Knowledge Deficit OT Goal 1 Goal 1. Patient to be independent with instructed materials. Target Visit 8 OT Problem 2 OT Problem #2 Pain OT Goal 1 Goal 1. Patient to report reduced pain in the left wrist to 4/10 or less with use/ADLs/strengthening exercises. Target Visit 8 OT Problem 3 OT Problem #3 Impaired Strength OT Goal 1 Goal 1. 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 2. Increase functional left wrist strength as evident by patient being able to complete wrist strengthening in all planes with 2 lb. free weight x20 reps. Target Visit 8
--- NOTE | 2022-12-09 11:58 | PCPTNOTE ---
Pt. canceled 12/09/22 appointment noting that she is sick.
--- NOTE | 2022-12-26 16:17 | OPREHPOC ---
Outpatient Therapy Plan of Care This is a Multidisciplinary Plan of Care that may contain components documented by all disciplines (PT, OT, and ST.) PT Problem 1 PT Problem #1 Knowledge Deficit PT Goal 1 Goal [place] with HEP Target Visit 4 Progress Met PT Problem 2 PT Problem #2 Pain PT Goal 1 Goal Reduce L hip pain with walking 100 feet to 2/10 Progress Partially Met Comment Improved but lacking PT Problem 3 PT Problem #3 Impaired Range of Motion PT Goal 1 Goal Demonstrate 30 degrees of jerrod hip abduction indicating capsular mobility for squatting and walking Target Visit 8 Progress Not Met Comment No objective improvement found PT Goal 2 Goal Improve L hip internal rotation to 20 degrees to improve terminal stance of gait Target Visit 8 Progress Partially Met Comment Improved but lacking goal PT Problem 4 PT Problem #4 Impaired Gait PT Goal 1 Goal Patient will ambulate with even stride length bilaterally independent of AD Progress Partially Met OT Problem 1 OT Problem #1 Knowledge Deficit OT Goal 1 Goal 1. Patient to be independent with instructed materials. Target Visit 8 OT Problem 2 OT Problem #2 Pain OT Goal 1 Goal 1. Patient to report reduced pain in the left wrist to 4/10 or less with use/ADLs/strengthening exercises. Target Visit 8 OT Problem 3 OT Problem #3 Impaired Strength OT Goal 1 Goal 1. 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 2. Increase functional left wrist strength as evident by patient being able to complete wrist strengthening in all planes with 2 lb. free weight x20 reps. Target Visit 8
--- NOTE | 2022-12-26 16:19 | PTOPDC ---
Assessment and note entered by Romeo Lafleur, PT Discharge Information Assessment Status Discharge Diagnosis Left thigh pain, R shoulder pain Onset 07/15/22 Subjective Information Patient reports that although there may not be much objective improvement she has seen a lot of subjective improvement as far as pain and ease of walking goes. She is debating looking into having a hip replacement pending possible imaging findings. Reported Pain Level Pain Score 7: Self Report Assessment PT Clinical Summary Patient did not see significant objective ROM improvement in hip at this time. WE did find improved strength and mobility, as well as subjective pain improvement. Overall patient has good understanding of HEP and suitable for D/C to HEP at this time. Plan of Care PT Services Indicated Yes
--- NOTE | 2022-12-30 15:52 | OTOPPROG ---
Assessment and note entered by Jose Eduardo Tucker, SIMONA/[place], CHT Evaluation Information Diagnosis Left wrist pain Subjective Information Patient sustained a fall onto outstretched hands on 07/15/22 and has been having left wrist pain ever since. Initial x-rays are negative for fractures. 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 She reports her wrist is feeling better. Continues to have pain at the end of the day after using her hand all day. She has been wearing a wrist immobilizer for support. She reports the carpal tunnel pain is excruciating . At the start of care, patient was experiencing 10/ 10 wrist pain. Walking in today she reports no pain at rest. At the end of the day her pain can get up to 6/10. Assessment OT Clinical Summary Patient referred to outpatient OT with dx of left wrist pain sustained during a fall 5 months ago. Assessment today shows improvement in gross wrist strength, no pain with MMT, and 17 lb. 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 Patient is independent with splinting for comfort/support and HEP. No further skilled OT indicated at this time. Plan of Care OT Services Indicated No These treatments will address the objective and functional deficits as defined above. The patient will be advanced safely and appropriately in order for the patient to progress towards his/her prior level of function. Additional exercises will be introduced and as well as a comprehensive home exercise program upon discharge, if needed, ?to ensure carryover of functional gains achieved in the clinic. This treatment plan has been reviewed and agreement upon by the patient.
== END 2022-12-31 09:45 | disposition home or self-care (01) ==
LOC: ANHOT 15:15
PROVIDERS: PCP Family Medicine; Visit Provider Family Medicine
DX: M79.659 Pain in unspecified thigh (principal); M25.511 Pain in right shoulder; S69.92XA Unspecified injury of left wrist, hand and finger(s), initial encounter
CPT/HCPCS: 97110; 97112; 97140; 97161; 97165; 97530; 99199; L3906

== ENCOUNTER 2023-01-06 15:44 | Emergency (ER) | payer OTHER, SELFPAY ==
--- NOTE | ~2023-01-06 | CT_ITS ---
EXAMINATION: CT lumbar spine wo con DATE: 01/06/2023 18:46 INDICATION: Sciatica TECHNIQUE: Computed tomography (CT) of the lumbar spine was performed without intravenous contrast. Laly he dose-length product was 1178.24 mGy-cm. Automated exposure control and iterative reconstruction te beliatalibque were employed. COMPARISON: None FINDINGS: Vertebral body heights are maintained. There is significant disc narrowing at all lumbar le vels. There is endplate sclerosis at L2-3. There is degenerative retrolisthesis at L1-2 and L2-3. The re is mild levoscoliosis. There are prominent bridging osteophytes at multiple levels. No acute fract ure or traumatic malalignment. There are calcified granulomas of the spleen. No significant paraspina l soft tissue abnormality. IMPRESSION: 1. No acute abnormality of the lumbar spine. 2: Severe cervical spondylosis. Reviewed, dictated and finalized at location A.
--- NOTE | ~2023-01-06 | US_ITS ---
EXAMINATION:US venous doppler LE RT INDICATION:Right leg pain TECHNIQUE: Multiple grayscale, color flow and Doppler images of the right lower extremity deep venous systems were obtained and reviewed. COMPARISON:11/26/2003 FINDINGS: The common femoral, superficial femoral and popliteal veins demonstrate normal respiratory variation, augmentation and compressibility. Color flow is also seen within the posterior tibial, pe roneal, greater saphenous and profunda veins. IMPRESSION: 1: No lower extremity deep venous thrombosis. Reviewed, dictated and finalized at location A.
[2023-01-06 15:46] VITALS: BP 131/99; PULSE 87; RESP 20; TEMP 36.6; O2SAT 100
--- NOTE | 2023-01-06 16:02 | ED.GENADULT ---
HPI - General Adult General Chief complaint: Extremity Problem,Nontraumatic <Rosalee Douglass July SENIOR INFORMATION SYSTEMS ARCHITECT - Last Filed: 01/06/23 16:04> Stated complaint: RLE pain <Rosalee Douglass July - Last Filed: 01/06/23 16:04> Time Seen by Provider: 01/06/23 18:18 <Rosalee Douglass July - Last Filed: 01/06/23 16:04> History of Present Illness HPI narrative: Minnie Lloyd is a 72 y/o female who present with reports of having pain from her right hip down to her foot that started 3 days ago. She denies any trauma or injury / pain started spontaneously. She states she has tried to take Ibuprofen without any relief of pain. She states she has had sciatica before and this feels different/ worse. <Rosalee Douglass July, - Last Filed: 01/06/23 16:04> I assumed care of this patient after medical screening exam. Minnie Lloyd is a 72 y/o female who present with reports of having pain from her right hip down to her foot that started 3 days ago. She denies any trauma or injury / pain started spontaneously. She states she has tried to take Ibuprofen without any relief of pain. She states she has had sciatica before and this feels different/ worse. <Franko Hollingsworth MD - Last Filed: 01/07/23 14:13> Related Data Home medications: Home Medications Medication Instructions Recorded Confirmed blood sugar diagnostic 11/23/20 05/02/22 biotin 10 mg tablet 10 mg PO DAILY 01/18/22 05/02/22 gabapentin 300 mg capsule 300 mg PO QHS 07/15/22 <Rosalee Douglass July, - Last Filed: 01/06/23 16:04> Allergies/adverse reactions: Allergies Allergy/AdvReac Type Severity Reaction Status Date / Time No Known Allergies Allergy Verified 12/19/22 14:30 <Rosalee Douglass July, - Last Filed: 01/06/23 16:04> Review of Systems Review of Systems: CONSTITUTIONAL: Denies fever, chills, or sweats. CARDIOVASCULAR: Denies chest pain, palpitations, or edema. RESPIRATORY: Denies cough or dyspnea. GASTROINTESTINAL: Denies abdominal pain, nausea, vomiting, or diarrhea. GENITOURINARY: Denies dysuria or hematuria. SKIN: Denies rash or itching. MUSCULOSKELETAL: Chronic left leg pain, right leg pain and cramping Denies back pain, or myalgia. NEUROLOGIC: Denies headache, numbness, dizziness, or weakness. PSYCHIATRIC: Denies anxiety or depression. <Franko Hollingsworth MD - Last Filed: 01/07/23 14:13> [facility] Past Medical History Medical History: Medical History Essential (primary) hypertension Hypothyroidism Mixed hyperlipidemia Postmenopausal Type 2 diabetes mellitus with diabetic neuropathy <Rosalee Douglass July, SENIOR INFORMATION SYSTEMS ARCHITECT - Last Filed: 01/06/23 16:04> Family History Family History: Family History Mother Carcinoma of colon Family history of malignant neoplasm of breast in first degree relative Sibling Family history of malignant neoplasm of breast in first degree relative Carcinoma of colon Father Malignant neoplasm of prostate Family history of congestive heart failure Other Diabetes mellitus Family history of cardiovascular disease Family history of kidney disease Family history of malignant neoplasm Hypertension <Rosalee Douglass July, SENIOR INFORMATION SYSTEMS ARCHITECT - Last Filed: 01/06/23 16:04> Social History Social History: Social History Smoking status: Never smoker Second hand tobacco smoke exposure: Yes Alcohol intake: never Substance use: never Substance use type: does not use Lack of Transportation: No Lack of Food: Sometimes True Current Housing: I Have Housing Concerned About Future Housing: No Difficulty Paying Gas/Electric Bills: YES Difficulty Paying for Meds: YES Currently Unemployed: No Education: High School Diploma/GED Difficulty w/ Childcare or Family Care: No Living arrangements: alone Gender identity (if verbalized by the patient): Female
[2023-01-06] MEDS: HYDROcodone/acetaminophen (*CRX) 5-325 MG TABLET 1 TAB PO (16:06)
[2023-01-06] MEDS: CYCLOBENZAPRINE HCL 10 MG TABLET PO (16:06)
== END 2023-01-06 19:17 | disposition home or self-care (01) ==
PROVIDERS: Emergency Provider Preventive Medicine Aerospace Medicine; PCP Family Medicine
DX: M54.16 Radiculopathy, lumbar region (principal); M79.604 Pain in right leg; I10 Essential (primary) hypertension; E03.9 Hypothyroidism, unspecified; E78.2 Mixed hyperlipidemia; E11.40 Type 2 diabetes mellitus with diabetic neuropathy, unspecified; Z79.85 Long-term (current) use of injectable non-insulin antidiabetic drugs; Z79.84 Long term (current) use of oral hypoglycemic drugs
CPT/HCPCS: 72131; 93971; 99284; A9270

== ENCOUNTER 2023-01-23 16:25 | Outpatient (CLI) | payer OTHER, SELFPAY ==
--- NOTE | ~2023-01-23 | XR_ITS ---
EXAMINATION: XR foot RT min 3V DATE: 01/23/2023 16:59 INDICATION: Right foot pain TECHNIQUE: Dorsoplantar, two oblique and lateral views of the right foot were obtained. COMPARISON: None. FINDINGS: Alignment is normal. No fracture. Minimal to mild polyarticular osteoarthritis at a few of the tarsal metatarsal, metatarsophalangeal and interphalangeal joints. Moderate-sized Achilles and plantar calc aneal spurs. Soft tissues are unremarkable. No right ankle joint effusion. IMPRESSION: 1. Moderate-sized Achilles and plantar calcaneal spurs and minimal to mild particular osteoarthritis in the mid and forefoot. Reviewed, dictated and finalized at location A. WHEELER IMPRESSION: 1. Moderate-sized Achilles and plantar calcaneal spurs and minimal to mild part icular osteoarthritis in the mid and forefoot.
== END 2023-01-23 16:26 ==
PROVIDERS: PCP Family Medicine; Visit Provider Family Medicine
DX: M77.31 Calcaneal spur, right foot (principal); M19.071 Primary osteoarthritis, right ankle and foot
CPT/HCPCS: 73630

== ENCOUNTER → 2023-01-28 15:43 | Outpatient (CLI) | payer OTHER, SELFPAY ==
--- NOTE | ~2023-01-28 | XR_ITS ---
EXAM: XR ankle RT min 3V DATE: 01/28/2023 16:01 HISTORY: M25.579 - Pain in unspecified ankle and joints of unspeci... . COMPARISON: None available. FINDINGS: Normal mineralization. No fracture or dislocation. No lytic or blastic lesion. Mild degene rative change in the tibiotalar joint. Moderate Achilles and plantar enthesopathy. No erosion or dennis osteal change. Soft tissues within normal limits. IMPRESSION: Moderate Achilles and plantar enthesopathy. Mild tibiotalar osteoarthritis. Reviewed, dictated and finalized at location K. KBOOKS BOOKKEEPER IMPRESSION: Moderate Achilles and plantar enthesopathy. Mild tibiotalar osteoar thritis.
== END ==
PROVIDERS: PCP Family Medicine; Visit Provider Family Medicine
DX: M77.31 Calcaneal spur, right foot (principal); M19.071 Primary osteoarthritis, right ankle and foot
CPT/HCPCS: 73610

== ENCOUNTER 2023-04-24 13:48 | Outpatient (CLI) | payer OTHER, SELFPAY ==
--- NOTE | ~2023-04-24 | MM_ITS ---
EXAMINATION: MM screening lou[place] BI w leo HISTORY: Screening mammogram, family history of breast cancer in her mother and sister. TECHNIQUE: Craniocaudal and mediolateral oblique 3-D tomosynthesis images were obtained and synthetic 2-D images were generated. CAD analysis was submitted and interpreted. COMPARISON: 01/03/2022, 12/21/2020, 11/10/2019 BREAST PARENCHYMAL COMPOSITION:Not Dense. There are scattered areas of fibroglandular density. FINDINGS: Scattered bilateral benign calcifications are present. No suspicious mass, calcification, o r architectural distortion are identified in either breast to suggest malignancy. There has been no s uspicious interval change. IMPRESSION: No mammographic evidence of malignancy. Recommend routine screening mammography in one year. BI-RADS Category 2: Benign finding(s). Reviewed, dictated and finalized at location M. OSING ROOM MACHINIST
== END 2023-04-24 13:49 | disposition home or self-care (01) ==
PROVIDERS: PCP Family Medicine; Visit Provider Obstetrics & Gynecology
DX: Z12.31 Encounter for screening mammogram for malignant neoplasm of breast (principal)
CPT/HCPCS: 77063; 77067

== ENCOUNTER 2023-04-25 14:12 | Outpatient (CLI) | payer OTHER, SELFPAY ==
--- NOTE | ~2023-04-25 | US_ITS ---
EXAMINATION: US art doppler w press LE BI DATE: 04/25/2023 15:42 INDICATION: Claudication and resting right foot pain. TECHNIQUE: Segmental pressures and plethysmographic and Doppler waveforms of the brachial and lower e xtremity arteries were obtained. COMPARISON: None. FINDINGS: Right and left brachial artery pressures of 162 mm Hg and 157 mm Hg, respectively, are concordant (no rmal difference <= 30 mmHg). The right and left high-thigh pressure indices were unable to be obtaine d due to inability to occlude the vessels in either thigh (normal > 1.2). The right ankle-brachial index (CRYS) is 1.07 (normal >= 0.9-1). The right great toe-brachial index (T BI) is 0.80 (normal >= 0.6-0.8). The right lower extremity segmental pressure gradients are normal (n ormal gradients <= 20-30 mmHg between adjacent levels on the same leg or the same levels on the two l egs). Arterial waveforms are biphasic with brisk systolic upstrokes at the right common femoral, supe rficial femoral and popliteal arteries. The waveforms presented for the right posterior tibial and do rsalis pedis arteries are unable to be reliably interpreted appearing irregular in both none repeatin g and not of the same leg or the remaining waveforms. The left CRYS is 1.09. The left TBI is 0.73. The left lower extremity segmental pressure gradients are normal. Arterial waveforms are biphasic with brisk systolic upstrokes throughout the arteries of the left lower limb. IMPRESSION: 1. No significant arterial occlusive disease to either lower limb with normal bilateral ABIs and TBIs Reviewed, dictated and finalized at location A. AROUND ENGINEER IMPRESSION: 1. No significant arterial occlusive disease to either lower limb with normal b ilateral ABIs and TBIs
== END 2023-04-25 14:13 | disposition home or self-care (01) ==
PROVIDERS: PCP Family Medicine
DX: M79.671 Pain in right foot (principal); I73.9 Peripheral vascular disease, unspecified
CPT/HCPCS: 93923

== ENCOUNTER 2023-06-25 12:49 | Outpatient (CLI) | payer OTHER, SELFPAY ==
--- NOTE | ~2023-06-25 | MR_ITS ---
EXAMINATION: MR lumbar spine wo con DATE: 06/25/2023 13:42 INDICATION: Right L5/S1 radiculopathy. TECHNIQUE: Magnetic resonance imaging (MRI) of the lumbar spine was performed without intravenous con trast. Sequences included sagittal T2-weighted FSE, sagittal T2-weighted FS FSE, sagittal T1-weighted FSE, and axial T2-weighted FSE. COMPARISON: None FINDINGS: There is 10 degrees levoscoliosis of lumbar spine. There is 3 mm retrolisthesis of L1 on L2 and L2 on L3 and 3 mm anterolisthesis of L4 on L5. There is mild chronic anterior wedging of T12 deirdre tebral body. There is mildly decreased disc height at T12-L1 and L1-L2, severely decreased disc heigh t at L2-L3 and L3-L4, mildly decreased disc height at L4-L5, and severely decreased disc height at L5 -S1. The distal spinal cord signal intensity is normal. The conus medullaris is at L1-L2. The followi ng disc levels are specifically discussed: L1-L2: The disc is bulging and has an annular fissure. There is moderate bilateral facet joint osteoa rthritis. There is moderate bilateral neural foraminal stenosis. There is mild central canal stenosis . L2-L3: The disc is bulging and has an annular fissure. There is severe bilateral facet joint osteoart hritis. There is moderate right and mild left neural foraminal stenosis. There is mild central canal stenosis. L3-L4: The disc is bulging and has an annular fissure. There is severe right and moderate left facet joint osteoarthritis. There is moderate right and mild left neural foraminal stenosis. There is mild central canal stenosis. L4-L5: The disc is bulging and has an annular fissure. There is severe bilateral facet joint osteoart hritis. There is moderate right and mild left neural foraminal stenosis. There is mild central canal stenosis. L5-S1: The disc is bulging and has an annular fissure. There is mild right and severe left facet join t osteoarthritis. There is mild bilateral neural foraminal stenosis. There is mild central canal sten osis. IMPRESSION: 1. Severe lumbar spondylosis. 2. Lumbar levoscoliosis. Reviewed, dictated and finalized at location E.
== END 2023-06-25 12:50 | disposition home or self-care (01) ==
PROVIDERS: PCP Family Medicine; Visit Provider Orthopaedic Surgery
DX: M47.26 Other spondylosis with radiculopathy, lumbar region (principal)
CPT/HCPCS: 72148

== ENCOUNTER 2023-09-12 13:34 | Inpatient (IN) | payer OTHER, SELFPAY ==
[2023-09-12] VITALS (7 sets, daily range): BP systolic 117–145; BP diastolic 45–73; PULSE 74–84; RESP 16–20; TEMP 36.4–36.8; O2SAT 95–98; BMI 40.6
--- NOTE | ~2023-09-12 | US_ITS ---
EXAMINATION: US right upper quadrant DATE: 09/13/2023 08:47 INDICATION: Pancreatitis. TECHNIQUE: Multiple grayscale and Doppler ultrasound images of the abdomen were obtained. COMPARISON: CT abdomen pelvis 09/12/2023 FINDINGS: The visualized portions of the head and body of the pancreas are normal. Note that ultrasou nd is less sensitive than CT for pancreatitis. The liver is normal without focal lesion. There is nor mal flow in main portal vein. The gallbladder is normal in size. No gallstones or gallbladder wall th ickening. There is no sonographic Cross's sign. The common duct is normal and measures 6 mm. There i s trace ascites. IMPRESSION: 1. No visible cholelithiasis. Reviewed, dictated and finalized at location A.
--- NOTE | ~2023-09-12 | CT_ITS ---
EXAMINATION: CT abdomen pelvis w con DATE: 09/12/2023 16:10 INDICATION: Abdominal pain and distention. TECHNIQUE: Computed tomography (CT) of the abdomen and pelvis was performed with 100 mL Omnipaque 350 intravenous contrast. Automated exposure control and iterative reconstruction technique were employe d. The dose-length product was 1346.45 mGy-cm. COMPARISON: CT abdomen and pelvis 01/12/2020 FINDINGS: The visualized portions of the lung bases demonstrate mild atelectasis. A calcified left vikram ng nodule is consistent with old granulomatous disease. No pleural effusion. The heart size is normal . No pericardial effusion. The liver and gallbladder are normal. Calcifications in the spleen are con sistent with old granulomatous disease. There is fat stranding and small volume of fluid around the p ancreas, consistent with acute interstitial pancreatitis. The adrenal glands are normal. There is cor tical thinning of the kidneys. There is trace pelvic ascites. There are no dilated loops of bowel. Th e appendix is normal. There are no pathologically enlarged lymph nodes. There is a 2.4 cm cyst in rig ht adnexa, likely benign. There are bilateral inguinal hernias containing fat. There is severe lumbar spondylosis. Lumbar levoscoliosis is noted. IMPRESSION: 1. Acute interstitial pancreatitis. Reviewed, dictated and finalized at location A.
--- NOTE | ~2023-09-12 | MR_ITS ---
EXAMINATION: MR MRCP wo/w con/w 3D wo ind DATE: 09/14/2023 09:57 INDICATION: Pancreatitis. TECHNIQUE: Magnetic resonance imaging (MRI) of the abdomen was performed without and with 20 mL Multi Matt intravenous contrast. Sequences included coronal T2-weighted FS FSE, coronal T2-weighted FSE, a xial T1-weighted LAVA, coronal FS FIESTA, axial dual-echo T1-weighted SPGR, coronal lava-FLEX, sagitt al T2-weighted FSE, axial T2-weighted FSE, and axial DWI. Thick-slab T2-weighted FSE images were obta ined for magnetic resonance cholangiopancreatography (MRCP). Maximum intensity projection 3-D reconst ructions of the volumetric data were created by the technologist. Postcontrast sequences included cor onal LAVA-flex and time course of axial T1-weighted LAVA. COMPARISON: CT abdomen pelvis 09/12/2023 FINDINGS: ABDOMEN MRI: There is diffuse hepatic steatosis. There are small pleural effusions. The gallbladder i s normal in size. There are small gallstones in the gallbladder. The spleen, adrenal glands, and kidn eys are normal. The pancreas enhances throughout. There is fat stranding around the pancreas, consist ent with acute interstitial pancreatitis. There is a small volume of ascites. ABDOMEN MRCP: The common duct is normal and measures 7 mm. No choledocholithiasis. IMPRESSION: 1. Acute interstitial pancreatitis. 2. Cholelithiasis. 3. Small pleural effusions. 4. Small volume of ascites. 5. Diffuse hepatic steatosis. Reviewed, dictated and finalized at location E.
--- NOTE | 2023-09-12 13:58 | ECG_ITS ---
Test Date: 2023-09-12 14:03:15 Measurements Intervals [place] Rate: 82 P: 53 CT: 151 QRS: -24 QRSD: 69 T: 61 QT: 372 QTc: 435 Interpretive Statements SINUS RHYTHM LOW QRS VOLTAGE IN PRECORDIAL LEADS BORDERLINE R WAVE PROGRESSION, ANTERIOR LEADS BORDERLINE ECG No previous ECG available for comparison Electronically Signed On 09-12-2023 14:07:36 CDT by Pedro Dubose D.O.
[2023-09-12 14:27] LABS: Basophils Percent Auto 0.3 % (0.2-1.2); Eosinophils Percent Auto 0.4 % (0-4.4); Hematocrit 36.1 % (37.0-47.0); Hemoglobin 12.3 g/dL (12.0-15.0); Immature Granulocyte Absolute 0.04 K/mm3 (0.00-0.031); Immature Granulocyte Percent A 0.4 % (0-0.5); Lymphocytes Absolute Auto 0.52 K/mm3 (0.9-3.2); Lymphocytes Percent Auto 5.8 % (18.3-44.2); Mean Corpuscular HGB Conc 34.1 g/dl (32-36); Mean Corpuscular Hemoglobin 29.7 pg (26-34); Mean Corpuscular Volume 87.2 fl (80-100); Mean Platelet Volume 10.1 fl (7.4-10.4); Monocytes Absolute Auto 0.5 K/mm3 (0.1-0.6); Monocytes Percent Auto 6.1 % (2.6-8.5); Neutrophils Absolute Auto 7.8 K/mm3 (1.3-6.7); Platelet Count Result 198 k/mm3 (150-375); Red Blood Count 4.14 M/mm3 (4.2-5.4); Red Cell Distribution Width 13.3 % (11.5-14.5); White Blood Count 8.9 K/mm3 (4.5-10.0)
[2023-09-12 14:41] LABS: Alanine Aminotransferase 315 U/L (6-35); Alkaline Phosphatase 101 U/L (38-126); Anion Gap 7 mmol/L (4-12); Aspartate Amino Transferase 450 U/L (14-36); Bilirubin,Total 0.6 mg/dL (0.2-1.3); Blood Urea Nitrogen 21 mg/dL (7-17); Calcium 9.6 mg/dL (8.4-10.2); Carbon Dioxide 29 mmol/L (22-30); Chloride 102 mmol/L (98-107); Estimated Glomerular Filt Rate > 60; Glucose 240 mg/dL (65-110); Potassium 3.9 mmol/L (3.4-5.0); Sodium 138 mmol/L (137-145)
[2023-09-12 14:55] LABS: NT Pro B Type Natriuretic Pept 225 pg/mL (19.9-100); Troponin I < 0.012 ng/mL (0.000-0.034)
[2023-09-12 15:05] LABS: Lipase 7145 U/L (23-300)
[2023-09-12 15:39] LABS: Appearance Urine Turbid (Clear); Bacteria Urine 4+ /hpf; Bilirubin Urine 1+ (Negative); Blood Urine Negative (Negative); Color Urine Dark Yellow (Yellow); Glucose Urine UA Negative (Negative); Ketones Urine Negative (Negative); Leukocyte Esterase Ur 2+ LEU/UL (Negative); Need Manual Microscopic Reviewed; Nitrate Urine Positive (Negative); Protein Urine 1+ mg/dL (Negative); RBC Urine 21-50 /hpf (0-2); Specific Grav Ur 1.019 (1.001-1.035); Squamous Epithelial Cell Urine Many /hpf (Few); WBC Urine 51-100 /hpf (0-3)
[2023-09-12] MEDS: SODIUM CHLORIDE 0.9% IV 1,000 ML 999 ML IV CONT ×2 (15:50→17:57)
[2023-09-12 15:52] LABS: Add Urine Microscopic? YES
--- NOTE | 2023-09-12 16:43 | ED.ABDPAIN ---
HPI - Abdominal Pain General Chief Complaint: Abdominal Pain Stated Complaint: abd pain Time Seen by Provider: 09/12/23 15:25 History of Present Illness HPI narrative: Patient is a 73-year-old female who presents to the emergency department this afternoon complaining of generalized abdominal pain worse in the upper left admit epigastric region. Patient states that the pain started yesterday and has been progressively getting worse. She does admit that the pain does sometimes radiate to her chest but right now she is denying any chest pain or shortness of breath. Denies any vomiting episodes but states that she has felt a nauseous. Denies any urinary symptoms including dysuria or hematuria. No fevers or chills at home. No additional symptoms or concerns at this time. Related Data Home Medications Medication Instructions Recorded Confirmed blood sugar diagnostic 11/23/20 05/30/23 gabapentin 400 mg capsule 400 mg PO TID 05/12/23 05/30/23 boric acid (bulk) ea miscellaneous 06/11/23 cyclobenzaprine 5 mg tablet 5 mg PO TID PRN 06/11/23 docusate sodium 50 mg capsule 50 mg PO BID 06/11/23 metformin 1,000 mg tablet 1,000 mg PO DAILY 06/11/23 methocarbamol 750 mg tablet 750 mg PO TID 06/11/23 nystatin 100,000 unit/gram topical 1 applic topical DAILY PRN 06/11/23 ointment ramelteon 8 mg tablet 8 mg PO QHS 06/11/23 Allergies Allergy/AdvReac Type Severity Reaction Status Date / Time No Known Allergies Allergy Verified 09/12/23 15:11 Review of Systems Review of Systems: All systems are reviewed and are negative unless stated otherwise in the HPI. [facility] Past Medical History Medical History Essential (primary) hypertension Hypothyroidism Mixed hyperlipidemia Neuropathy of right peroneal nerve Pain, joint, foot, right Postmenopausal Reflex sympathetic dystrophy of right leg Type 2 diabetes mellitus with diabetic neuropathy Surgical History Surgical History History of blepharoplasty History of knee replacement bilateral knee replacement History of vocal cord polypectomy Family History Family History Mother Carcinoma of colon Family history of malignant neoplasm of breast in first degree relative Sibling Family history of malignant neoplasm of breast in first degree relative Carcinoma of colon Father Malignant neoplasm of prostate Family history of congestive heart failure Other Diabetes mellitus Family history of cardiovascular disease Family history of kidney disease Family history of malignant neoplasm Hypertension Social History Social History Smoking status: Never smoker Second hand tobacco smoke exposure: Yes Alcohol intake: never Substance use: never Substance use type: does not use Do You Feel Safe in your Home?: Yes Lack of Transportation: No Lack of Food: Never True Current Housing: I Have Housing Concerned About Future Housing: No Difficulty Paying Gas/Electric Bills: No Difficulty Paying for Meds: No Currently Unemployed: No Education: High School Diploma/GED Difficulty w/ Childcare or Family Care: No Living arrangements: alone Occupation/Education: occupation Additional occupation/education comments: [employer] Gender identity (if verbalized by the patient): Female Spiritual care concerns: No Exam Narrative: General: Alert, awake, afebrile, in no acute distress. HEENT: PERRL, no rhinorrhea, no post nasal drip, oropharynx clear. Cardiovascular: Regular rate and rhythm, no murmurs, rubs or gallops, no peripheral edema. Respiratory: Clear to auscultation bilaterally, no tachypnea, no wheezing, no rhonchi, no rubs, no respiratory distress. Abdomen: Soft, tenderness to palpation over the mid epigastric re
[2023-09-12] MEDS: ONDANSETRON INJ 4 MG/2 ML VIAL IV PUSH (17:57)
[2023-09-12] MEDS: MORPHINE SULFATE (*CRX) 4 MG/ML INJ IV PUSH (17:57)
--- NOTE | 2023-09-12 18:35 | ADMGEN ---
This patient, Minnie Lloyd, was admitted to 2 Medical Room 254-01. Patient/family oriented to hospital policies and general routines including ID bracelet, bed and alarms, visiting hours, pain management, procedures, bathroom and other care routines, personal items, smoking policy, room service/diet, and visiting hours. Information on how to activate the Rapid Response Team has been discussed. Patient/Family are encouraged to report perceived risks to care and to ask questions if they do not understand what they are told or what they should do.
[2023-09-12] MEDS: MORPHINE SULFATE (*CRX) 2 MG/ML INJ IV PUSH ×2 (20:49→23:00)
--- NOTE | 2023-09-12 22:14 | PM.IMHP ---
H&P: HPI History of Present Illness Date/Time: 09/12/23 22:14 Chief Complaint: Abdominal pain Narrative: This is a pleasant 73-year-old female with PMH obesity, hypothyroidism, essential hypertension, hyperlipidemia, peripheral neuropathy, [id number] diabetes mellitus who presents with abdominal pain diffuse but more so on the left, also radiates to the right upper quadrant and back which is crampy in nature. It awoke her out of her sleep morning of admission. She only drinks a few drinks per year, denies illicit drug use, denies smoking, denies drinking energy drinks. He has never had an abdominal surgery. She still has her gallbladder. She denies vomiting, admits to nausea. Denies diarrhea. No chest pain or shortness of breath. [place] [facility] evaluation demonstrated a hemodynamically stable patient on room air, AST 450, ALT 315, total bilirubin 0.6, alkaline phosphatase 101, troponin 0.012, BNP 225, lipase 7145, urinalysis turbid, positive for nitrites, rbc's, wbc's, squamous cells. Administer 1 g of Rocephin IV x1, 2 L normal saline bolus, morphine 4 mg IV x1, Zofran [address] abdomen pelvis with contrast demonstrates fat stranding and small volume of fluid around the pancreas consistent with acute interstitial pancreatitis. Admitted on 09/12/2023. Review of Systems Review of Systems: All systems reviewed & are unremarkable except as noted in HPI and below (Subjective) PMFSH Past Medical History Medical History Essential (primary) hypertension Hypothyroidism Mixed hyperlipidemia Neuropathy of right peroneal nerve Pain, joint, foot, right Postmenopausal Reflex sympathetic dystrophy of right leg Type 2 diabetes mellitus with diabetic neuropathy Surgical History Surgical History History of blepharoplasty History of knee replacement bilateral knee replacement History of vocal cord polypectomy Family History Family History Mother Carcinoma of colon Family history of malignant neoplasm of breast in first degree relative Sibling Family history of malignant neoplasm of breast in first degree relative Carcinoma of colon Father Malignant neoplasm of prostate Family history of congestive heart failure Other Diabetes mellitus Family history of cardiovascular disease Family history of kidney disease Family history of malignant neoplasm Hypertension Social History Social History Smoking status: Never smoker Second hand tobacco smoke exposure: Yes Alcohol intake: never Substance use: never Substance use type: does not use Do You Feel Safe in your Home?: Yes Lack of Transportation: No Lack of Food: Never True Current Housing: I Have Housing Concerned About Future Housing: No Difficulty Paying Gas/Electric Bills: No Difficulty Paying for Meds: No Currently Unemployed: No Education: High School Diploma/GED Difficulty w/ Childcare or Family Care: No Living arrangements: alone Occupation/Education: occupation Additional occupation/education comments: [employer] Gender identity (if verbalized by the patient): Female Spiritual care concerns: No Meds Home Medications and Allergies Home Medications Medication Instructions Recorded Confirmed Type lancets 31 gauge #100 ea 08/10/19 09/12/23 Rx blood sugar diagnostic 11/23/20 09/12/23 History losartan 100 mg tablet 100 mg PO DAILY #90 tabs 08/06/22 09/12/23 Rx rosuvastatin 10 mg tablet (Crestor) 10 mg PO .every other day #45 tabs 11/13/22 09/12/23 Rx ibuprofen 800 mg tablet 800 mg PO Q6-8H PRN pain #120 tabs 01/16/23 09/12/23 Rx hydrocodone 5 mg-acetaminophen 325 1 tablet PO Q8H PRN pain #30 tabs 02/10/23 09/12/23 Rx mg tablet gabapentin 400 mg capsule 800 mg PO Q8H 05/12/23 07
[2023-09-12] MEDS: GABAPENTIN 400 MG CAPSULE 800 MG PO (22:37)
[2023-09-12] MEDS: SODIUM CHLORIDE 0.9% IV 1,000 ML 83 ML IV CONT (22:37)
[2023-09-13 00:06] LABS: Glucose Point of Care 119 mg/dl (65-105)
[2023-09-13] MEDS: MORPHINE SULFATE (*CRX) 2 MG/ML INJ IV PUSH ×4 (01:41→17:52)
[2023-09-13 05:41] LABS: Glucose Point of Care 100 mg/dl (65-105)
[2023-09-13 06:00] VITALS: BP 124/56; PULSE 81; RESP 18; TEMP 36.9; O2SAT 91
[2023-09-13] MEDS: GABAPENTIN 400 MG CAPSULE 800 MG PO ×3 (06:40→21:25)
[2023-09-13 08:11] LABS: Basophils Percent Auto 0.1 % (0.2-1.2); Eosinophils Absolute Auto 0.1 K/mm3 (0-0.3); Eosinophils Percent Auto 1.3 % (0-4.4); Hematocrit 32.2 % (37.0-47.0); Hemoglobin 10.6 g/dL (12.0-15.0); Immature Granulocyte Absolute 0.03 K/mm3 (0.00-0.031); Immature Granulocyte Percent A 0.4 % (0-0.5); Lymphocytes Absolute Auto 0.96 K/mm3 (0.9-3.2); Lymphocytes Percent Auto 13.5 % (18.3-44.2); Mean Corpuscular HGB Conc 32.9 g/dl (32-36); Mean Corpuscular Volume 91.2 fl (80-100); Monocytes Absolute Auto 0.7 K/mm3 (0.1-0.6); Monocytes Percent Auto 9.4 % (2.6-8.5); Neutrophils Absolute Auto 5.4 K/mm3 (1.3-6.7); Neutrophils Percent Auto 75.3 % (45.5-73.1); Platelet Count Result 164 k/mm3 (150-375); Red Blood Count 3.53 M/mm3 (4.2-5.4); White Blood Count 7.1 K/mm3 (4.5-10.0)
[2023-09-13 08:34] LABS: Alanine Aminotransferase 187 U/L (6-35); Alkaline Phosphatase 65 U/L (38-126); Anion Gap 3 mmol/L (4-12); Aspartate Amino Transferase 95 U/L (14-36); Bilirubin,Total 0.5 mg/dL (0.2-1.3); Blood Urea Nitrogen 14 mg/dL (7-17); Calcium 8.5 mg/dL (8.4-10.2); Carbon Dioxide 27 mmol/L (22-30); Chloride 107 mmol/L (98-107); Estimated CRCL calculation 82 ml/min; Estimated Glomerular Filt Rate > 60; Glucose 118 mg/dL (65-110); Potassium 3.6 mmol/L (3.4-5.0); Sodium 137 mmol/L (137-145)
[2023-09-13] MEDS: PANTOPRAZOLE SODIUM IV 40 MG VIAL IV PUSH (09:20)
[2023-09-13 09:33] LABS: Glucose Point of Care 120 mg/dl (65-105)
[2023-09-13 09:34] LABS: Lipase 2375 U/L (23-300)
[2023-09-13 10:43] VITALS: O2SAT 92
[2023-09-13 10:48] LABS: Hepatitis B Surface Antigen Negative (Negative)
[2023-09-13 10:54] LABS: HAV RESULT Negative (Negative); Hepatitis B Core IgM Result Negative (Negative)
[2023-09-13 11:05] LABS: Hepatitis C Virus Antibody Negative (Negative)
[2023-09-13] MEDS: SODIUM CHLORIDE 0.9% IV 1,000 ML 83 ML IV CONT ×2 (11:21→23:30)
[2023-09-13 12:09] LABS: Glucose Point of Care 111 mg/dl (65-105)
[2023-09-13 14:00] VITALS: BP 133/63; PULSE 69; RESP 16; TEMP 36.8; O2SAT 95
--- NOTE | 2023-09-13 14:09 | PM.IMPN ---
Progress Note: A&P Assessment and Plan (1) Acute pancreatitis: Code(s): K85.90 - Acute pancreatitis without necrosis or infection, unspecified Status: Acute Assessment and Plan: Patient presents with abdominal pain. Lipase 7145. CT scan showing acute interstitial pancreatitis. Liver and GB normal. Treated with IV fluids and narcotics. Pain better. Lipase trending down. She feels hungry. RUQ US showing no visible GS. No dilated ducts. Apparently not related to alcohol. Consider viral etiology. Consider penetrating DU. Consider occult GS pancreatitis from passed stone vs sludge. Consider meds such as metformin, Crestor and/or losartan. Minoxidil is a new med but does not cause pancreatitis. Start clear liquid diet and advance to low fat as tolerated. Check TG level. Consider MRCP to further define etiology. GenSurg consult. Continue PPI. (2) Transaminitis: Code(s): R74.01 - Elevation of levels of liver transaminase levels Status: Acute Assessment and Plan: AST 450 and ALT 315 with normal AP and bili level. Elevated ALT consistent with GS pancreatitis but not seen on imaging. AST and ALT have improved considerably. AP and Bili remain normal. Hepatitis panel negative. Follow (3) Urinary tract infection: Code(s): N39.0 - Urinary tract infection, site not specified Status: Acute Assessment and Plan: UA is consistent with UTI. UCx collected. Rocephin started. UCx growing EColi. Follow up on UCx results. (4) Type 2 diabetes mellitus with diabetic neuropathy: Qualifiers: Diabetes mellitus terminologist insulin use: without terminologist use Qualified Code(s): E11.40 - Type 2 diabetes mellitus with diabetic neuropathy, unspecified Code(s): E11.40 - Type 2 diabetes mellitus with diabetic neuropathy, unspecified Status: Acute Assessment and Plan: The patient's blood glucose was reviewed on 09/12 Glucose remains well controlled. Continue AccuCheks covering with sliding scale. Hypoglycemia protocol available as needed. Continue to monitor (5) Essential (primary) hypertension: Code(s): I10 - Essential (primary) hypertension Status: Acute Assessment and Plan: Patient's blood pressure was reviewed on 09/12 Blood pressure remains well controlled. Will continue to monitor Plan DVT prophylaxis: SCDs Code Status: full code Dispo: Stable. Anticipate discharge home Subjective Date/time seen: 09/13/23 14:09 Interval history: 73yo female with HTN, hypothyroidism, HLD and DM here for abdominal pain and found to have pancreatitis. Feeling better. Abd pain improved. No nausea. Feels hungry. No BM or flatus. No alchol use. New medication is minoxidil. Exam Narrative: AF 98.5 124/56 81 18 92% ra Gen - NARD Chest - few bibasilar crackles. nml RR CV - RRR S1/S2 Abd - Soft, mild diffuse abd pain Ext - No pedal edema Psych - Nml mood and affect Skin - Warm and dry Objective Data Vital Signs Vital Signs: Vital Signs - 24 hr 09/12/23 15:11 09/12/23 15:55 09/12/23 16:57 Temperature 97.6 F 97.8 F 97.8 F Pulse Rate 79 78 80 Respiratory Rate 20 16 16 Blood Pressure 132/55 L 117/45 L 145/73 H Pulse Oximetry 95 96 95 Oxygen Delivery 09/12/23 17:58 09/12/23 18:30 09/12/23 18:30 Temperature 97.8 F 98.1 F Pulse Rate 78 77 Respiratory Rate 20 18 Blood Pressure 130/50 L 133/50 L Pulse Oximetry 98 97 Oxygen Delivery Room Air 09/12/23 19:48 09/13/23 06:00 09/13/23 10:43 Temperature 98.2 F 98.5 F Pulse Rate 74 81 Respiratory Rate 18 18 Blood Pressure 127/48 L 124/56 L Pulse Oximetry 98 91 92 Oxygen Delivery Room Air 09/13/23 09:20 Temperature Pulse Rate Respiratory Rate Blood Pressure Pulse Oximetry Oxygen Delivery Room Air Intake/Output Intake/Output: Intake & Output 09/10/23 09/11/23 09/12/23 09/13/23 23:59 23:59 23:59 23:59 Intake Total 215
[2023-09-13] MEDS: BENZONATATE 100 MG CAPSULE PO (14:48)
[2023-09-13 16:39] LABS: Glucose Point of Care 122 mg/dl (65-105)
[2023-09-13 18:52] LABS: Glucose Point of Care 259 mg/dl (65-105)
[2023-09-13] MEDS: INSULIN ASPART (*BKC) 100 UNITS/ML SUB-Q (18:54)
[2023-09-13 21:25] VITALS: RESP 18
[2023-09-13 22:00] VITALS: BP 124/61; PULSE 66; RESP 18; TEMP 36.9; O2SAT 96
[2023-09-14 03:03] LABS: Glucose Point of Care 223 mg/dl (65-105)
[2023-09-14 03:03] LABS: Glucose Point of Care 133 mg/dl (65-105)
[2023-09-14 05:20] LABS: Basophils Percent Auto 0.3 % (0.2-1.2); Eosinophils Absolute Auto 0.3 K/mm3 (0-0.3); Eosinophils Percent Auto 4.3 % (0-4.4); Hematocrit 33.3 % (37.0-47.0); Hemoglobin 10.4 g/dL (12.0-15.0); Immature Granulocyte Absolute 0.02 K/mm3 (0.00-0.031); Immature Granulocyte Percent A 0.3 % (0-0.5); Lymphocytes Absolute Auto 1.27 K/mm3 (0.9-3.2); Lymphocytes Percent Auto 21.1 % (18.3-44.2); Mean Corpuscular HGB Conc 31.2 g/dl (32-36); Mean Corpuscular Hemoglobin 29.1 pg (26-34); Mean Corpuscular Volume 93.3 fl (80-100); Monocytes Absolute Auto 0.7 K/mm3 (0.1-0.6); Monocytes Percent Auto 10.8 % (2.6-8.5); Neutrophils Absolute Auto 3.8 K/mm3 (1.3-6.7); Neutrophils Percent Auto 63.2 % (45.5-73.1); Platelet Count Result 176 k/mm3 (150-375); Red Blood Count 3.57 M/mm3 (4.2-5.4); Red Cell Distribution Width 13.6 % (11.5-14.5)
[2023-09-14 05:37] LABS: Alanine Aminotransferase 130 U/L (6-35); Albumin Level 3.2 g/dL (3.5-5.1); Alkaline Phosphatase 66 U/L (38-126); Anion Gap 0 mmol/L (4-12); Aspartate Amino Transferase 49 U/L (14-36); Bilirubin,Total 0.4 mg/dL (0.2-1.3); Blood Urea Nitrogen 9 mg/dL (7-17); Calcium 8.7 mg/dL (8.4-10.2); Carbon Dioxide 28 mmol/L (22-30); Chloride 111 mmol/L (98-107); Cholesterol 184 mg/dL (0-200); Estimated CRCL calculation 82 ml/min; Estimated Glomerular Filt Rate > 60; Glucose 115 mg/dL (65-110); HDL Direct 50 mg/dL; Lipase 581 U/L (23-300); Potassium 3.7 mmol/L (3.4-5.0); Sodium 139 mmol/L (137-145); Triglycerides 123 mg/dL (<150)
[2023-09-14 05:49] LABS: LDL Cholesterol Direct 114 mg/dL
[2023-09-14 06:00] VITALS: BP 140/65; PULSE 71; RESP 18; TEMP 36.3; O2SAT 94
[2023-09-14] MEDS: LEVOTHYROXINE SODIUM 125 MCG TABLET PO (06:10)
[2023-09-14] MEDS: GABAPENTIN 400 MG CAPSULE 800 MG PO ×3 (06:10→21:13)
--- NOTE | 2023-09-14 08:16 | PM.CNGS ---
Assessment and Plan Assessment and plan (1) Acute pancreatitis: Code(s): K85.90 - Acute pancreatitis without necrosis or infection, unspecified Status: Acute Assessment and Plan: Unknown etiology, exam and labs improved with supportive care, agree with MRCP for evaluation History of Present Illness Consult details Consult date: 09/14/23 Reason for consult: abdominal pain Requesting physician: Adeel Calderon MD Narrative: The patient is a 73-year-old female that initially presented to the emergency department complaining diffuse upper abdominal pain with radiation to her back. Patient reports pain has been ongoing for the last few days. The patient denies previous similar episodes. The patient reports decreased appetite and nausea. Workup, including imaging, is significant for acute pancreatitis. Review of Systems Review of Systems: All systems reviewed & are unremarkable except as noted in HPI and below PMFSH Past Medical History Medical History Essential (primary) hypertension Hypothyroidism Mixed hyperlipidemia Neuropathy of right peroneal nerve Pain, joint, foot, right Postmenopausal Reflex sympathetic dystrophy of right leg Type 2 diabetes mellitus with diabetic neuropathy Surgical History Surgical History History of blepharoplasty History of knee replacement bilateral knee replacement History of vocal cord polypectomy Family History Family History Mother Carcinoma of colon Family history of malignant neoplasm of breast in first degree relative Sibling Family history of malignant neoplasm of breast in first degree relative Carcinoma of colon Father Malignant neoplasm of prostate Family history of congestive heart failure Other Diabetes mellitus Family history of cardiovascular disease Family history of kidney disease Family history of malignant neoplasm Hypertension Social History Social History Smoking status: Never smoker Second hand tobacco smoke exposure: Yes Alcohol intake: never Substance use: never Substance use type: does not use Do You Feel Safe in your Home?: Yes Lack of Transportation: No Lack of Food: Never True Current Housing: I Have Housing Concerned About Future Housing: No Difficulty Paying Gas/Electric Bills: No Difficulty Paying for Meds: No Currently Unemployed: No Education: High School Diploma/GED Difficulty w/ Childcare or Family Care: No Living arrangements: alone Occupation/Education: occupation Additional occupation/education comments: [employer] Gender identity (if verbalized by the patient): Female Spiritual care concerns: No Meds Home Medications and Allergies Home Medications Medication Instructions Recorded Confirmed Type lancets 31 gauge #100 ea 08/10/19 09/12/23 Rx blood sugar diagnostic 11/23/20 09/12/23 History losartan 100 mg tablet 100 mg PO DAILY #90 tabs 08/06/22 09/12/23 Rx rosuvastatin 10 mg tablet (Crestor) 10 mg PO .every other day #45 tabs 11/13/22 09/12/23 Rx ibuprofen 800 mg tablet 800 mg PO Q6-8H PRN pain #120 tabs 01/16/23 09/12/23 Rx hydrocodone 5 mg-acetaminophen 325 1 tablet PO Q8H PRN pain #30 tabs 02/10/23 09/12/23 Rx mg tablet gabapentin 400 mg capsule 800 mg PO Q8H 05/12/23 09/12/23 History boric acid (bulk) See Rx Instructions .Route .COMPLEX 06/11/23 09/12/23 History cyclobenzaprine 5 mg tablet 5 mg PO TID PRN Muscle Pain 06/11/23 09/12/23 History docusate sodium 50 mg capsule 50 mg PO BID PRN Constipation 06/11/23 09/12/23 History metformin 1,000 mg tablet 2,000 mg PO DAILY 06/11/23 09/12/23 History nystatin 100,000 unit/gram topical 1 applic topical DAILY 06/11/23 09/12/23 History ointment ramelteon 8 mg tablet 8 mg PO QHS PRN Insomnia 04
[2023-09-14 08:32] LABS: Glucose Point of Care 135 mg/dl (65-105)
[2023-09-14] MEDS: PANTOPRAZOLE SODIUM IV 40 MG VIAL IV PUSH (10:16)
[2023-09-14 12:21] LABS: Glucose Point of Care 228 mg/dl (65-105)
[2023-09-14] MEDS: INSULIN ASPART (*BKC) 100 UNITS/ML SUB-Q ×2 (12:30→21:05)
[2023-09-14 14:00] VITALS: BP 122/52; PULSE 62; RESP 18; TEMP 36.6; O2SAT 93
[2023-09-14] MEDS: SODIUM CHLORIDE 0.9% IV 1,000 ML 83 ML IV CONT (17:00)
[2023-09-14 17:04] LABS: Glucose Point of Care 187 mg/dl (65-105)
--- NOTE | 2023-09-14 17:07 | PM.IMPN ---
Progress Note: A&P Assessment and Plan (1) Acute pancreatitis: Code(s): K85.90 - Acute pancreatitis without necrosis or infection, unspecified Status: Acute Assessment and Plan: Patient presents with abdominal pain. Lipase 7145. CT scan showing acute interstitial pancreatitis. Liver and GB normal. Treated with IV fluids and narcotics. Pain better. Lipase trending down. RUQ US showing no visible GS. No dilated ducts. TG level okay. MRCP showing acute interstitial pancreatitis, cholelithiasis, small volume of ascites and hepatic steatosis. Suspect GS pancreatitis Started clear liquid diet and advanced to diabetic, low fat as tolerated. GenSurg consulted for possible cholecystectomy. Continue PPI. NPO after midnight. Adjust pain medications. Start miralax (2) Transaminitis: Code(s): R74.01 - Elevation of levels of liver transaminase levels Status: Acute Assessment and Plan: AST 450 and ALT 315 with normal AP and bili level. AST and ALT have improved. AP and Bili remain normal. Hepatitis panel negative. Related to above Follow (3) Urinary tract infection: Code(s): N39.0 - Urinary tract infection, site not specified Status: Acute Assessment and Plan: UA is consistent with UTI. UCx collected. Rocephin started. UCx growing EColi susceptible to Rocephin. (4) Type 2 diabetes mellitus with diabetic neuropathy: Qualifiers: Diabetes mellitus remote computer terminal operator insulin use: without remote computer terminal operator use Qualified Code(s): E11.40 - Type 2 diabetes mellitus with diabetic neuropathy, unspecified Code(s): E11.40 - Type 2 diabetes mellitus with diabetic neuropathy, unspecified Status: Acute Assessment and Plan: A1c 7.1 in June. The patient's blood glucose was reviewed on 09/13 Glucose elevated at times. Continue AccuCheks covering with sliding scale. Hypoglycemia protocol available as needed. Continue to monitor (5) Essential (primary) hypertension: Code(s): I10 - Essential (primary) hypertension Status: Acute Assessment and Plan: Patient's blood pressure was reviewed on 09/13 Blood pressure remains well controlled. Will continue to monitor Plan DVT prophylaxis: SCDs Code Status: full code Dispo: Stable. Anticipate discharge home Subjective Date/time seen: 09/14/23 17:07 Interval history: 73yo female with HTN, hypothyroidism, HLD and DM here for abdominal pain and found to have pancreatitis. Slept okay but feels somnolent today. Up to the chair. No BMs but passing flatus. Tolerating full liquid but did have slight abd pain after eating. She admits today that she has been taking her Gabapentin ('I can't function without it') but that she has been off all her other mediations for at least a month due to a family issue. She also had a change in her diet with eating more fast food. She resumed her medications about 2 days before the onset of her symptoms. Exam Narrative: AF 97.8 122/52 62 18 93% ra Gen - NARD Chest - few bibasilar crackles. nml RR CV - RRR S1/S2 Abd - Soft, obese, NT Ext - Non pitting pedal edema Psych - Nml mood and affect Skin - Warm and dry Objective Data Vital Signs Vital Signs: Vital Signs - 24 hr 09/13/23 22:00 09/13/23 21:25 09/14/23 06:00 Temperature 98.5 F 97.4 F L Pulse Rate 66 71 Respiratory Rate 18 18 18 Blood Pressure 124/61 140/65 Pulse Oximetry 96 94 Oxygen Delivery Room Air 09/14/23 11:22 09/14/23 10:15 09/14/23 14:00 Temperature 97.8 F Pulse Rate 62 Respiratory Rate 18 Blood Pressure 122/52 L Pulse Oximetry 93 Oxygen Delivery Room Air Room Air Intake/Output Intake/Output: Intake & Output 09/11/23 09/12/23 09/13/23 09/14/23 23:59 23:59 23:59 23:59 Intake Total 5560 8292 1962 Output Total 806 307 9999 Balance 1850 1592 762 Meds/Results Medications: Active Medications Generic Name Dose Route Start Last
[2023-09-14] MEDS: polyethylene glycoL 3350 17 GM POWD.PACK PO (17:52)
[2023-09-14 19:44] LABS: Glucose Point of Care 278 mg/dl (65-105)
[2023-09-14 20:49] VITALS: BP 124/59; PULSE 62; RESP 16; TEMP 36.4; O2SAT 97
[2023-09-15 05:07] VITALS: BP 154/65; PULSE 55; RESP 16; TEMP 36.6; O2SAT 99
[2023-09-15 05:07] LABS: Basophils Percent Auto 0.2 % (0.2-1.2); Eosinophils Absolute Auto 0.3 K/mm3 (0-0.3); Eosinophils Percent Auto 6.7 % (0-4.4); Hematocrit 34.1 % (37.0-47.0); Hemoglobin 10.9 g/dL (12.0-15.0); Immature Granulocyte Absolute 0.02 K/mm3 (0.00-0.031); Immature Granulocyte Percent A 0.4 % (0-0.5); Lymphocytes Absolute Auto 1.24 K/mm3 (0.9-3.2); Lymphocytes Percent Auto 27.7 % (18.3-44.2); Mean Corpuscular Hemoglobin 29.5 pg (26-34); Mean Corpuscular Volume 92.4 fl (80-100); Mean Platelet Volume 10.2 fl (7.4-10.4); Monocytes Absolute Auto 0.5 K/mm3 (0.1-0.6); Monocytes Percent Auto 11.2 % (2.6-8.5); Neutrophils Absolute Auto 2.4 K/mm3 (1.3-6.7); Neutrophils Percent Auto 53.8 % (45.5-73.1); Platelet Count Result 172 k/mm3 (150-375); Red Blood Count 3.69 M/mm3 (4.2-5.4); Red Cell Distribution Width 13.1 % (11.5-14.5); White Blood Count 4.5 K/mm3 (4.5-10.0)
[2023-09-15 05:15] LABS: Alanine Aminotransferase 108 U/L (6-35); Albumin Level 3.7 g/dL (3.5-5.1); Alkaline Phosphatase 68 U/L (38-126); Anion Gap 5 mmol/L (4-12); Aspartate Amino Transferase 32 U/L (14-36); Bilirubin,Total 0.4 mg/dL (0.2-1.3); Blood Urea Nitrogen 12 mg/dL (7-17); Calcium 9.2 mg/dL (8.4-10.2); Carbon Dioxide 28 mmol/L (22-30); Chloride 106 mmol/L (98-107); Estimated CRCL calculation 82 ml/min; Estimated Glomerular Filt Rate > 60; Glucose 162 mg/dL (65-110); Lipase 484 U/L (23-300); Potassium 4.3 mmol/L (3.4-5.0); Sodium 139 mmol/L (137-145)
[2023-09-15] MEDS: GABAPENTIN 400 MG CAPSULE 800 MG PO (05:49)
[2023-09-15] MEDS: LEVOTHYROXINE SODIUM 125 MCG TABLET PO (05:50)
[2023-09-15] MEDS: NYSTATIN OINTMENT 15 GM TUBE 1 APPLIC TOPICAL (05:57)
[2023-09-15 08:25] LABS: Glucose Point of Care 154 mg/dl (65-105)
--- NOTE | 2023-09-15 09:09 | PM.PNGS ---
Progress Note: A&P Assessment and Plan (1) Biliary acute pancreatitis: Code(s): K85.10 - Biliary acute pancreatitis without necrosis or infection Status: Acute Assessment and Plan: resolving, cont low fat diet, long d/w pt re: interval raghu and she would like to go home and have procedure done as outpt, ok to dc home if santy diet and f/u in 1 - 2 wks to schedule interval raghu Subjective Subjective Date/Time Seen: 09/15/23 09:09 Interval history: feels good, santy low fat diet, no further pain, N/V Review of Systems Review of Systems: All systems reviewed & are unremarkable except as noted in HPI and below Exam Const: General: cooperative, comfortable and no acute distress Resp: Auscultation: clear to auscultation bilaterally Cardio: Rate: regular rate Rhythm: regular rhythm GI: Inspection: normal to inspection and non-distended GI Palp: No abdominal tenderness, Yes Soft to palpation, No Tenderness to palpation present (GI), No Guarding due to palpation present (GI) and No Rigid due to palpation Objective Data Vital Signs Vital Signs: Vital Signs - 24 hr 09/14/23 11:22 09/14/23 10:15 09/14/23 14:00 Temperature 36.6 C Pulse Rate 62 Respiratory Rate 18 Blood Pressure 122/52 L Pulse Oximetry 93 Oxygen Delivery Room Air Room Air 09/14/23 20:49 09/14/23 21:13 09/15/23 05:07 Temperature 36.4 C 36.6 C Pulse Rate 62 55 L Respiratory Rate 16 16 Blood Pressure 124/59 L 154/65 H Pulse Oximetry 97 99 Oxygen Delivery Room Air Intake/Output Intake/Output: Intake & Output 09/12/23 09/13/23 09/14/23 09/15/23 23:59 23:59 23:59 23:59 Intake Total 2150 2392 2372 Output Total 005 547 5074 Balance 1850 1592 222 Meds/Results Medications: Active Medications Generic Name Dose Route Start Last Admin Trade Name Freq PRN Reason Stop Dose Admin Acetaminophen 650 mg 09/14/23 17:08 Acetaminophen 325 Mg Tablet PO Q6H PRN Mild Pain (1-3) or Fever Hydrocodone Bitart/Acetaminophen 1 tab 09/14/23 17:08 Hydrocodone/Acetaminophen (*Crx) 5-325 Mg Tablet PO Q6H PRN Pain Rated 4-6 Benzonatate 100 mg 09/13/23 14:36 09/13/23 14:48 Benzonatate 100 Mg Capsule PO 100 mg TID PRN Administration Cough Dextrose 12.5 gm 09/12/23 22:09 Dextrose 50% 25 Gm/50 Ml Syringe IV PUSH PRN PRN Hypoglycemia Protocol Docusate Sodium 50 mg 09/13/23 17:05 Docusate Sodium Liq 100 Mg/10 Ml Udc PO BID PRN Constipation Gabapentin 800 mg 09/12/23 22:15 09/15/23 05:49 Gabapentin 400 Mg Capsule PO 800 mg Q8HR LINDSEY Administration Glucagon 1 mg 09/12/23 22:09 Glucagon For Inj 1 Mg Vial IM PRN PRN Hypoglycemia Protocol Glucose 15 gm 09/12/23 22:09 Glucose Oral Gel 15 Gm Of Glucse In 37.5 Gm Tube PO PRN PRN Hypoglycemia Protocol Ceftriaxone Sodium 1 gm in 50 mls @ 100 mls/hr 09/13/23 16:00 09/14/23 18:22 Rocephin 1 Gm/Ns 50 Ml IVPB Infused Q24H LINDSEY Infusion Dextrose 1,000 mls @ 100 mls/hr 09/12/23 22:09 Dextrose 5% 1,000 Ml IVPB PRN PRN Hypoglycemia Protocol Insulin Aspart 2 - 5 units 09/13/23 08:00 09/15/23 08:35 Insulin Aspart (*Bkc) 100 Units/Ml SUB-Q Not Given [facility] Protocol Insulin Aspart 1 - 2 units 09/13/23 21:00 09/14/23 21:05 Insulin Aspart (*Bkc) 100 Units/Ml SUB-Q 1 units HS LINDSEY Administration Protocol Levothyroxine Sodium 125 mcg 09/14/23 06:30 09/15/23 05:50 Levothyroxine Sodium 125 Mcg Tablet PO 125 mcg DAILY@0630 L[facility] Administration Morphine Sulfate 2 mg 09/14/23 17:20 Morphine Sulfate (*Crx) 2 Mg/Ml Inj IV PUSH Q4H PRN Pain 7-10 Nystatin 1 applic 09/13/23 18:13 09/15/23 05:57 Nystatin Ointment 15 Gm Tube TOPICAL 1 applic Q12HR PRN Administration Itching Ondansetron HCl 4 mg 09/12/23 22:09 Ondansetron Inj 4 Mg/2 Ml Vial IV PUSH
[2023-09-15] MEDS: PANTOPRAZOLE SODIUM IV 40 MG VIAL IV PUSH (09:47)
[2023-09-15] MEDS: polyethylene glycoL 3350 17 GM POWD.PACK PO (09:48)
[2023-09-15 12:05] LABS: Glucose Point of Care 333 mg/dl (65-105)
[2023-09-15] MEDS: INSULIN ASPART (*BKC) 100 UNITS/ML SUB-Q (12:13)
--- NOTE | 2023-09-15 14:48 | PM.DS ---
DS: Admitting Diagnosis Discharge Date 09/15/23 Admitting Diagnosis Abdominal pain DS: Discharge Diagnosis Discharge Diagnosis (1) Acute pancreatitis: Code(s): K85.90 - Acute pancreatitis without necrosis or infection, unspecified Status: Acute (2) Transaminitis: Code(s): R74.01 - Elevation of levels of liver transaminase levels Status: Acute (3) Urinary tract infection: Code(s): N39.0 - Urinary tract infection, site not specified Status: Acute (4) Type 2 diabetes mellitus with diabetic neuropathy: Qualifiers: Diabetes mellitus snf insulin use: without snf use Qualified Code(s): E11.40 - Type 2 diabetes mellitus with diabetic neuropathy, unspecified Code(s): E11.40 - Type 2 diabetes mellitus with diabetic neuropathy, unspecified Status: Acute (5) Essential (primary) hypertension: Code(s): I10 - Essential (primary) hypertension Status: Acute DS: Summary Hospital Course Reason for hospitalization: 73yo female with HTN, hypothyroidism, HLD and DM here for abdominal pain and found to have pancreatitis. Please see H&P for details. Hospital Course: Patient presents with abdominal pain. Lipase 7145. CT scan showing acute interstitial pancreatitis. Liver and GB normal. Treated with IV fluids and narcotics. Pain better. Lipase trended down. RUQ US showing no visible GS. No dilated ducts. TG level okay. MRCP showing acute interstitial pancreatitis, cholelithiasis, small volume of ascites and hepatic steatosis. Suspect GS pancreatitis. She was started on clear liquid diet and advanced to diabetic, low fat as tolerated. GenSurg consulted for possible cholecystectomy. AST 450 and ALT 315 with normal AP and bili level. Levels repeated and AST and ALT have improved. AP and Bili remain normal. Hepatitis panel negative. [place] elevated LFTs related to above. UA is consistent with UTI. UCx collected. Rocephin started. UCx growing EColi susceptible to Rocephin. A1c 7.1 in June. The patient's blood glucose was monitored with AccuCheks covering with sliding scale. Hypoglycemia protocol was available as needed. She did well. General Surgery felt she was safe for discharge with plans for follow-up outpatient cholecystectomy. Patient understands that she could develop pancreatitis again. Status at Discharge Cognitive/behavioral status at discharge: stable Time Spent with Patient Time attestation: Total time spent providing and/or coordinating discharge services: 35 minutes Time spent: Greater than 30 minutes Exam Narrative: AF 97.8 154/65 55 16 99% ra Gen - NARD Chest - L>R bibasilar crackles. nml RR CV - RRR S1/S2 Abd - Soft, obese, NT Ext - No pitting pedal edema Psych - Nml mood and affect Skin - Warm and dry DS: Data Data Completed and Pending Labs on day of discharge: Labs from last 24 hours 09/15/23 09/15/23 09/15/23 11:57 08:17 04:47 WBC 4.5 RBC 3.69 L Hgb 10.9 L Hct 34.1 L MCV 92.4 MCH 29.5 MCHC 32.0 RDW 13.1 Plt Count 172 MPV 10.2 Immature Gran % (Auto) 0.4 Neut % (Auto) 53.8 Lymph % (Auto) 27.7 [place] % (Auto) 11.2 H Eos % (Auto) 6.7 H Baso % (Auto) 0.2 Lymph # (Auto) 1.24 [place] # (Auto) 0.5 Eos # (Auto) 0.3 Baso # (Auto) 0.0 Abs Immat Gran (auto) 0.02 Absolute Neuts (auto) 2.4 Absolute Nucleated RBC 0.000 Nucleated RBC % 0.0 Sodium 139 Potassium 4.3 Chloride 106 Carbon Dioxide 28 Anion Gap 5 BUN 12 Creatinine 0.60 L Estim Creat Clear Calc 82 Estimated GFR > 60 Glucose 162 H POC Capillary Glucose 333 H 154 H Calcium 9.2 Total Bilirubin 0.4 AST 32 ALT 108 H Alkaline Phosphatase 68 Total Protein 6.0 L Albumin 3.7 Lipase 484 H 09/14/23 09/14/23 19:34 16:52 WBC RBC Hgb Hct MCV MCH MCHC RDW Plt Count MPV Immature Gran % (Auto) Ne
== END 2023-09-15 15:35 | disposition home or self-care (01) | DRG 439 ==
LOC: ANHED 17:28 → ANH2MED 17:42
PROVIDERS: Emergency Medicine; Internal Medicine; Admitting Provider Family Medicine; Emergency Provider Emergency Medicine; PCP Family Medicine; Visit Provider Family Medicine
DX: K85.90 Acute pancreatitis without necrosis or infection, unspecified (principal); N39.0 Urinary tract infection, site not specified; R18.8 Other ascites; Z68.41 Body mass index [BMI] 40.0-44.9, adult; K80.20 Calculus of gallbladder without cholecystitis without obstruction; B96.20 Unspecified Escherichia coli [E. coli] as the cause of diseases classified elsewhere; E03.9 Hypothyroidism, unspecified; E66.9 Obesity, unspecified; E11.40 Type 2 diabetes mellitus with diabetic neuropathy, unspecified; E78.2 Mixed hyperlipidemia; I10 Essential (primary) hypertension; K76.0 Fatty (change of) liver, not elsewhere classified; R74.01 Elevation of levels of liver transaminase levels; Z79.84 Long term (current) use of oral hypoglycemic drugs; Z96.653 Presence of artificial knee joint, bilateral
CPT/HCPCS: 36415; 74177; 74183; 76376; 76705; 80053; 80061; 80074; 81001; 82248; 82948; 83690; 83880; 84484; 85025; 87077; 87086; 87088; 87186; 93005; 96365; 97161; 97165; 97535; 99285; A9270; A9577; J0696; J1815; J2270; J2405; J2470; J7030; Q9967

== ENCOUNTER 2024-02-12 14:23 | Outpatient (CLI) | payer OTHER, SELFPAY ==
--- NOTE | ~2024-02-12 | XR_ITS ---
XR hip LT 2V w AP pelvis 02/12/2024 14:46 Indication: Hip pain Procedure: AP pelvis and 2 views left hip Comparison: 07/15/2022 Findings: There is severe bilateral osteoarthritis of the hips, left greater than right. There is ost eitis pubis. Pelvic rings are intact. No acute fracture or traumatic malalignment. Impression: 1: Severe osteoarthritis of the hips. Reviewed, dictated and finalized at location B. [employer] Impression: 1: Severe osteoarthritis of the hips.
== END 2024-02-12 14:24 | disposition home or self-care (01) ==
LOC: ANHIMG 14:29
PROVIDERS: PCP Family Medicine; Visit Provider Family Medicine
DX: M16.0 Bilateral primary osteoarthritis of hip (principal)
CPT/HCPCS: 73502

== ENCOUNTER 2024-02-19 13:11 | Outpatient (RCR) | payer OTHER, SELFPAY ==
--- NOTE | 2024-02-19 17:38 | OPREHPOC ---
Outpatient Therapy Plan of Care This is a Multidisciplinary Plan of Care that may contain components documented by all disciplines (PT, OT, and ST.) PT Problem 1 PT Problem #1 Knowledge Deficit PT Goal 1 Goal / Goal Update [place] with HEP Target Visit 4 PT Goal 2 Goal / Goal Update Report 2 consistent weeks of pain less that 4/10 Target Visit 8 PT Problem 2 PT Problem #2 Impaired Range of Motion PT Goal 1 Goal / Goal Update 1. Improve jerrod hip abduction to 25 degrees to improve gross joint mobility for stride and transfers 2. Improve jerrod ankle dorsiflexion to 8+ degrees to improve terminal stance of gait Target Visit 8 PT Problem 3 PT Problem #3 Impaired Strength PT Goal 1 Goal / Goal Update 1. Improve jerrod hip abduction strength to 4/5 to improve lateral stability during gait and ADL function PT Goal 1 Goal / Goal Update 20 percent improvement in LEFS score Target Visit 8
--- NOTE | 2024-02-19 17:38 | PTOPEVAL1 ---
Assessment and note entered by Romeo Lafleur, PT Evaluation Information Assessment Status Evaluation Diagnosis Pain in left thigh ICD-10 Condition Codes (PT) Pain in left hip M25.552 Onset Chronic Subjective Information Patient reports that she has been having trouble with hip mobility and back pain for a long time. She has done therapy in the past and it has helped . She also has been struggling a lot with neuropathy. Reports that pain feels linked to limited motion. Would like to resume therapy to promote hip mobility and walking. Reported Pain Level Pain Score 6: Self Report Assessment PT Clinical Summary Patient presents with signs and symptoms consistent with hip OA and lumbar radiculopathy. Patient has very poor jerrod hip motion multidirectional. Patient will benefit form skilled therapy to address deficits in hip ROM and strength to improve gait and transfers. Plan of Care Interventions Gait Training,Manual Therapy,Neuro Re-education, Therapeutic Activities,Therapeutic Exercise PT Services Indicated Yes Treatment Frequency and 1-2x/week for 8 visits Duration These treatments will address the objective and functional deficits as defined above. The patient will be advanced safely and appropriately in order for the patient to progress towards his/her prior level of function. Additional exercises will be introduced and as well as a comprehensive home exercise program upon discharge, if needed, ?to ensure carryover of functional gains achieved in the clinic. This treatment plan has been reviewed and agreement upon by the patient.
--- NOTE | 2024-03-22 09:04 | PTOPDC ---
Assessment and note entered by Cheli Green, PT Assessment Status Discharge - Pt Not Present Diagnosis Pain in left thigh ICD-10 Condition Codes (PT) Pain in left hip M25.552 Onset Chronic Subjective Information pt called and canceled all appointments due to too much going on with her family. Assessment PT Clinical Summary Minnie had the PT evaluation on February 18. She has not returned for any treatment. She called and left a message to cancel her PT. Discharge PT. The goals were not addressed. Plan of Care PT Services Indicated No
== END 2024-03-22 11:41 | disposition home or self-care (01) ==
LOC: ANHPT 13:11
PROVIDERS: PCP Family Medicine; Visit Provider Family Medicine
DX: M25.552 Pain in left hip (principal)
CPT/HCPCS: 97110; 97140; 97161

== ENCOUNTER 2024-03-30 13:30 | Outpatient (CLI) | payer OTHER, SELFPAY ==
--- NOTE | ~2024-03-30 | MR_ITS ---
EXAMINATION: MR femur LT wo con DATE: 03/30/2024 15:06 INDICATION: Left lower limb pain TECHNIQUE: Magnetic resonance imaging (MRI) of the left femur was performed without intravenous contr ast. The distalmost femurs at the level of the knees are excluded from the [id number]. Sequences included axial, sagittal and coronal T1-weighted FSE and fluid sensitive FSE STIR. The contralateral right femur is included on the coronal imaging. COMPARISON: Left femur radiographs dated 07/15/2022 and left hip MRI dated 03/30/2024 FINDINGS: There is metallic magnetic field artifact at the caudal margin of the field of imaging such with bila teral total knee arthroplasties. Severe osteoarthritis at the left hip with subarticular edema-like s ignal change at both sides of the joint space. There is otherwise normal bone marrow signal throughou t the bilateral femurs. No fracture, stress reaction, osteonecrosis or other pathologic marrow replac ing process. Small amount of fluid overlying the left greater trochanter consistent with trochanteric bursitis. No left hip joint effusion or other abnormal fluid collections. Small fat-containing left inguinal hernia. 7 mm T2 hyperintense nabothian cyst at the cervix. Partially visualized 3.0 cm right adnexal cyst. No pathologically enlarged inguinal lymphadenopathy. The musculature and the neurovasc ular structures in the left thigh appear normal and symmetric with the right thigh. IMPRESSION: 1. Severe osteoarthritis at the left hip and bilateral total knee arthroplasties. The intervening lef t thigh and femur are unremarkable. 2. Left trochanteric bursitis. Reviewed, dictated and finalized at location A. [employer] IMPRESSION: 1. Severe osteoarthritis at the left hip and bilateral total knee arthroplastie s. The intervening left thigh and femur are unremarkable. 2. Left trochanteric bursitis.
--- NOTE | ~2024-03-30 | MR_ITS ---
EXAMINATION: MR hip LT wo con DATE: 03/30/2024 14:43 INDICATION: Left hip pain. TECHNIQUE: Magnetic resonance imaging (MRI) of the left hip was performed without intravenous contras t. COMPARISON: Pelvis and left hip radiographs 02/12/2024 FINDINGS: Bones/cartilage: There is lumbar levoscoliosis and severe spondylosis. There is severe right hip osteoarthritis includ ing full-thickness cartilage loss and osteophytes. There is severe left hip osteophytes including ful l-thickness cartilage loss, large osteophytes, flattening of superior aspect of the femoral head, and subchondral edema-like marrow signal intensity. Labrum: There are tears of the bilateral acetabular monse. Fluid: There is no hip joint effusion. There is mild bilateral trochanter bursitis. Soft tissues: There is prominent fat in the inguinal canals that may be hernias. There is a 3.1 cm cyst in the righ t ovary, likely benign. There are partial tears of the hamstring origins bilaterally. There is mild r ight gluteus minimus and gluteus medius tendinopathy. The left gluteal tendons are normal. The iliops oas tendons are normal. IMPRESSION: 1. Severe osteoarthritis of the hips. 2. 3.1 cm cyst in right ovary, likely benign. Pelvis ultrasound is recommended in one year. Reviewed, dictated and finalized at location B. [employer]
== END 2024-03-30 13:31 | disposition home or self-care (01) ==
LOC: GOSHIMG 13:31
PROVIDERS: PCP Family Medicine; Visit Provider Family Medicine
DX: M16.12 Unilateral primary osteoarthritis, left hip (principal); M70.62 Trochanteric bursitis, left hip
CPT/HCPCS: 73718; 73721

== ENCOUNTER 2024-05-28 15:42 | Outpatient (CLI) | payer OTHER, SELFPAY ==
--- NOTE | ~2024-05-28 | MM_ITS ---
EXAMINATION: MM screening louis BI w leo HISTORY: Screening TECHNIQUE: Craniocaudal and mediolateral oblique 3-D tomosynthesis images were obtained and synthetic 2-D images were generated. CAD analysis was submitted and interpreted. COMPARISON: Comparison to multiple prior studies sequentially, with oldest reviewed study dated 09/2017. BREAST PARENCHYMAL COMPOSITION: Not dense: There are scattered areas of fibroglandular density. FINDINGS: There is no evidence of suspicious mass, calcification, or architectural distortion to sugg est malignancy in either breast. There has been no suspicious interval change. IMPRESSION: 1. No mammographic evidence of malignancy. 2. Recommend routine screening mammography in one year. BI-RADS Category 1: Negative Reviewed, dictated and finalized at location B.
--- OUTSIDE RECORDS SUMMARY | 2024-05-28 15:45 | XMS_ITS | Referral Summary ---
Author Organization [facility] [place] [facility] Address [address] [place] [address] Care Team Providers Care Flaker Operator Name Role Phone Pj Mccarty MD Primary Care Provider [phone] Gato Chen DPM Unavailable [phone] Dalton Conde MD Unavailable Allergies No known active allergies Medications ibuprofen (ADVIL,MOTRIN) 800 mg tablet 0 Active losartan (COZAAR) 100 mg tablet Take 1 tablet (100 mg total) by mouth daily 6 Active metFORMIN (GLUCOPHAGE) 1,000 mg tablet 2 tablets (2,000 mg total) daily 6 Active glipiZIDE (GLUCOTROL) 10 mg tablet Take 1 tablet (10 mg total) by mouth daily 3 Active rosuvastatin (CRESTOR) 10 mg tablet Take 1 tablet (10 mg total) by mouth every other day 3 Active Mounjaro 7.5 mg/0.5 mL pen injector 15 mg by abdominal subcutaneous route every 7 days 3 Active cyclobenzaprine (FLEXERIL) 5 mg tablet Take 1 tablet (5 mg total) by mouth 3 (three) times a day 3 Active ramelteon (ROZEREM) 8 mg tabletIndicatio ns:Sleep-Onset Insomnia Take 1 tablet (8 mg total) by mouth nightly 30 tablet 1 3 Active docusate sodium (COLACE) 50 mg capsuleIndicati ons:constipatio n Take 1 capsule (50 mg total) by mouth 2 (two) times a day as needed for constipation 60 capsule 1 3 Active Additional Information Patient taking differently: 100 mgoral 2 times daily PRN, constipation, Indications: constipation, Reported on 07/17/2023 HYDROcodone-kamilla taminophen (NORCO) 5-325 mg per tablet Take by mouth every 8 (eight) hours as needed 3 Active methocarbamoL (ROBAXIN) 750 mg tablet 3 Active predniSONE (DELTASONE) 20 mg tablet Take 2 tablets (40 mg) by mouth daily 3 Active levothyroxine (SYNTHROID) 137 mcg tablet Take 125 mcg by mouth daily 3 Active minoxidiL (LONITEN) 2.5 mg tabletIndicatio ns:hypertension Take 1 tablet (2.5 mg total) by mouth daily Active traMADoL (ULTRAM) 50 mg tablet Take 1 tablet (50 mg total) by mouth every 6 (six) hours as needed for pain Active naproxen (NAPROSYN) 500 mg tablet Take 1 tablet (500 mg total) by mouth 2 (two) times a day as needed for pain Active cholecalciferol (VITAMIN D-3) 25 mcg (1,000 unit) tablet Take 50 tablets (50,000 Units total) by mouth daily Active multivitamin with minerals capsule Take 1 capsule by mouth daily Active amino acids capsule Take 2 capsules by mouth daily Active hydrOXYzine (ATARAX) 25 mg tablet Take 1 tablet (25 mg total) by mouth 4 (four) times a day as needed for itching Active nystatin-triamc inolone ointmentIndicat ions:Vulvar dystrophy Apply topically 2 (two) times a day 15 g 2 4 Active boric acid, bulk, granulesIndicat ions:Vulvar dystrophy Insert 600 mg into the vagina 3 (three) times a week 30 g 3 4 Active nystatin ointment APPLY OINTMENT TOPICALLY NEEDED 30 g 9 4 Active gabapentin (NEURONTIN) 800 mg tabletIndicatio ns:Neuropathic Pain Take 1 tablet (800 mg total) by mouth every 8 (eight) hours 90 tablet 5 Active Active Problems Problem Noted Date Diagnosed Date PAD (peripheral artery disease) 05/30/2023 Assessment & Plan (05/30/2023 7:39 AM CDT): Clinically has palpable pulses in the left lower extremity with only dopplerable signals in the right lower extremity. We will repeat her lower extremity arterial Doppler as the report from [facility] reports these as normal. I suspect majority of her pain is neurogenic in nature either from lumbosacral spine disease or some neuropathy. We will follow-up after noninvasives. Hyperlipidemia, unspecified 02/04/2023 Assessment & Plan (05/30/2023 7:39 AM CDT): Stable continue Crestor 10 mg. Assessment & Plan (02/04/2023 5:31 PM UNDERGRADUATE ADVISOR): - Cont home rosuvastatin - Low Fat; Low Cholesterol diet Spinal stenosis of lumbar re gion, unspecified whether neurogenic claudication present 02/03/2023 Assessment & Plan (02/05/2023 6:45 PM UNDERGRADUATE ADVISOR): [place] regular PCP and Ortho doctor there. She says her low back had been bothering her on/off for years (though she was still able to move around and go about her daily tasks), but things got worse following a fall in the summer. She initially had R shoulder, L wrist, and L leg pain that got better with rest and 6 weeks of therapy, but then noticed the low back and R leg pain come on and steadily progress for weeks despite 2 past ED visits where she had fractures ruled out and received pain meds. - MRI spine showed multilevel lumbar diffuse degenerative disease with severe L4-L5 lumbar stenosis and disc protrusion with mass effect on L3-L4 nerve roots. Evaluated by neurosurgery at ED who recommended no surgical procedure - Pain management performed transforaminal epidural steroid injection on 02/04. Patient had pain relief afterwards and will get outpatient PT and OT. - Gabapentin 100 mg po TID - Flexiril 5 mg po TID - Tylenol- oxy 325-5 q6h prn for 3 doses - Hydromorphone for breakthrough pian - Discharge home on a pain regimen of capsaicin cream, cyclobenzaprine, and gabapentin. - fall precautions Hypertension, essential 02/03/2023 Assessment & Plan (05/30/2023 7:39 AM CDT): Stable continue losartan 100 mg. Assessment & Plan (02/04/2023 5:24 PM UNDERGRADUATE ADVISOR): - cw home losartan Diabetes mellitus type II, controlled 02/03/2023 Assessment & Plan (02/04/2023 5:34 PM UNDERGRADUATE ADVISOR): Hgb1c 7.2%, at home on Glipizide 10 mg, Metformin 1000 mg, Mounjaro injection weekly (gets it on Friday). Patient also has longstanding numbness + burning/tingling in bilateral feet (mostly right). She follows with PCP and Ortho at home and has been told her symptoms are a combination of possible diabetic nephropathy with long- term heel spurs and achilles tendon stretching/damage. -ss Insulin while inpatient; monitor glucose closely -Continue home PCP and Ortho f/up outpatient -Capsaicin Cream for R Foot -Obesity Medicine referral on discharge Hypothyroidism, unspecified 02/03/2023 Assessment & Plan (02/04/2023 5:25 PM UNDERGRADUATE ADVISOR): - Cw home levothyroxine Chronic vulvitis 08/27/2018 History of candidiasis 08/27/2018 LSC (lichen simplex chronicus) 08/27/2018 Immunizations Immunization Administration Dates Next Due Influenza, Trivalent, Adjuva nted, Intramuscular 12/22/2017,12/21/2017 Influenza, Trivalent, High D ose, Split, Preservative Free, Intramuscular 12/27/2018,01/01/2015 Influenza, Trivalent, IM (MDV) 12/23/2013,2012,12/29/2011 Influenza, Unspecified 01/12/2014 Pneumococcal Polysaccharide PPV23 03/18/2014 ZOSTER LIVE 01/01/2015 Social History Tobacco Use Types Packs/Day Years Used Date Smoking Tobacco: Never Tobacco Cessation:Counseling Given: Not Answered Alcohol Use Standard Drinks/Week Comments Not Currently 0 (1 standard drink = 0.6 oz pur e alcohol) AUDIT-C Answer Date Recorded Q1: How often do you have a drink containing alcohol? Never 07/30/2023 Q2: How many drinks containi ng alcohol do you have on a typical day when you are drinking? Patient does not drink Q3: How often do you have si x or more drinks on one occasion? Never 07/30/2023 Personal Safety Answer Date Recorded Have you ever been in or are you currently in a harmful physical or emotional relationship or is someone making you feel afraid or unsafe? Denies 02/02/2023 Comments No Sex and Gender Information Value Date Recorded Sex Assigned at Not on file Legal Sex Female 1:37 AM UNDERGRADUATE ADVISOR Gender Identity Not on file Sexual Orientation Not on file Last Filed Vital Signs Vital Sign Reading Time Taken Comments Blood Pressure 130/80 12/29/2023 3:51 PM CDT Pulse 71 08/13/2023 3:55 PM CDT Temperature 36.9 C (98.4 F) 08/13/2023 3:19 PM CDT Respiratory Rate 18 08/13/2023 3:55 PM CDT Oxygen Saturation 97% 08/13/2023 3:55 PM CDT Inhaled Oxygen Concentration - - Weight 108.9 kg (240 lb) 12/29/2023 3:51 PM CDT Height 162.6 cm (5' 4 ) 12/29/2023 3:51 PM CDT Body Mass Index 41.2 12/29/2023 3:51 PM CDT Plan of Treatment Not on file Goals Goal Patient Goal Type Associated Problems Recent Progress Patient-Stated? Author ACO CC Goal - Level of ADL/IADL assistance will meet patient's needs ACO Care Management No Mindy Aldana, RN Note: Problem: Inadequate assistance to manage ADL's/IADL's Interventions: - Assess current level of functioning and needs with patient/family. - Assess appropriateness for Home Health. Contact PCP office to start referral process if skilled need is present. - Encourage independent ADL's as appropriate. Ensure patient has the appropriate tools at home to be as independent as possible. - Refer to SW if appropriate and patient is agreeable. Procedures Procedure Name Priority Date/Time Associated Diagnosis Comments EGFR Routine 02/04/2023 8:39 PM UNDERGRADUATE ADVISOR HEMOGLOBIN A1C STAT 02/02/2023 10:47 PM UNDERGRADUATE ADVISOR LIPID PANEL STAT 02/02/2023 10:47 PM UNDERGRADUATE ADVISOR from Last 3 Months or Most Recently Relevant to Health Maintenance Results * eGFR (02/04/2023 8:39 PM UNDERGRADUATE ADVISOR) eGFR 76 >=60 mL/min/1. 73 m2 [facility] Comment: Interpretive Data Reference Interval Normal >/= 90 mL/min/1.73m2 Mildly decreased* 60 - 89 mL/min/1.73m2 Mildly to moderately decreased 45 - 59 mL/min/1.73m2 Moderately to severely decreased 30 - 44 mL/min/1.73m2 Severely decreased 15 - 29 mL/min/1.73m2 Kidney Failure < 15 mL/min/1.73m2 *Relative to young adult level Estimated glomerular filtration rate is determined by the 2020 CKD-EPI equation recommended by the National Kidney Foundation (A Unifying Approach to GFR Estimation: Recommendations of the NKF-ASK Task Force on Reassessing the Inclusion of Race in Diagnosing Kidney Disease, JASN 2020). The CKD-EPI equation should not be used for patients with unstable renal function and has not been validated in children and those over 70. Current interpretive data was last reviewed 2021. Blood 02/04/2023 8:39 PM UNDERGRADUATE ADVISOR 02/04/2023 9:56 PM UNDERGRADUATE ADVISOR us Kylie Milner MD LAB BLOOD ORDERABLES F inal Result [facility] [place] [address] * (ABNORMAL) Hemoglobin A1c (02/02/2023 10:47 PM UNDERGRADUATE ADVISOR) Hgb A1C 7.2(H) 4.0 - 5.6 % [facility] Estimated Average Glucose 160 mg/dL [facility] Comment: The ADA recommends reporting an estimated Average Glucose (eAG) with all Hemoglobin A1c results using the equation derived from a study of 507 normal and diabetic adults. Minority populations were underrepresented and children were not included. (Diabetes Care 2020; 43(S1): S66-S76). The eAG is not equivalent to a fasting glucose. Blood 02/02/2023 10:4 7 PM UNDERGRADUATE ADVISOR 02/02/2023 11:06 PM UNDERGRADUATE ADVISOR us Edgard Barreto MD LAB BLOOD ORDERABLES Final Resul t [facility] [place] [address] * (ABNORMAL) Lipid panel (02/02/2023 10:47 PM UNDERGRADUATE ADVISOR) Cholesterol 248(H) 30 - 199 mg/dL [facility] Comment: Interpretive Data Ages < or = 19 years Acceptable: <170 mg/dL Borderline high: 170-199 mg/dL High: >or= 200 mg/dL Ages > or = 20 years Desirable: <200 mg/dL Borderline high: 200-239 mg/dL High: >or= 240 mg/dL Literature References: 1. Expert Panel on Integrated Guidelines for Cardiovascular Health and Risk Reduction in Children and Adolescents. Pediatrics 2011;128:S213 2. NCEP Expert Panel. Circulation 2004;110:227 Current Interpretive Data was last revised on 2017. Triglycerides 213(H) <=149 mg/dL [facility] Comment: Interpretive Data Ages < or = 9 years Acceptable: <75 mg/dL Borderline high: 75-99 mg/dL High: >or= 100 mg/dL Ages 10 to 20 years Acceptable: <90 mg/dL Borderline high: 90-129 mg/dL High: >or= 130 mg/dL Ages > or = 20 years Desirable: <150 mg/dL Borderline high: 150-199 mg/dL High: 200-499 mg/dL Very high: >or= 499 mg/dL Literature References: 1. Expert Panel on Integrated Guidelines for Cardiovascular Health and Risk Reduction in Children and Adolescents. Pediatrics 2011;128:S213 2. NCEP Expert Panel. Circulation 2004;110:227 Current Interpretive Data was last revised on 2017. HDL 39(L) >=40 mg/dL [facility] Comment: Interpretive Data Ages < or = 19 years Acceptable: >45 mg/dL Borderline low: 40-45 mg/dL Low: <40 mg/dL Ages > or = 20 years Desirable: >or= 60 mg/dL Low: <40 mg/dL Literature References: 1. Expert Panel on Integrated Guidelines for Cardiovascular Health and Risk Reduction in Children and Adolescents. Pediatrics 2011;128:S213 2. NCEP Expert Panel. Circulation 2004;110:227 Current Interpretive Data was last revised on 2017. LDL, calculated 166(H) <=129 mg/dL [facility] Comment: Interpretive Data Ages < or = 19 years Acceptable: <110 mg/dL Borderline high: 110-129 mg/dL High: >or= 130 mg/dL Ages > or = 20 years Optimal: <100 mg/dL Near optimal: 100-129 mg/dL Borderline high: 130-159 mg/dL High: >160 mg/dL Literature References: 1. Expert Panel on Integrated Guidelines for Cardiovascular Health and Risk Reduction in Children and Adolescents. Pediatrics 2011;128:S213 2. NCEP Expert Panel. Circulation 2004;110:227 Current Interpretive Data was last revised on 2017. Non-HDL Cholesterol 209 mg/dL [facility] Comment: Interpretive Data Ages < or = 19 years Acceptable: <120 mg/dL Borderline high: 120-144 mg/dL High: >145 mg/dL Ages > or = 20 years When triglycerides are >200 mg/dL, Non-HDL cholesterol is a secondary target of therapy with treatment goals that are 30 mg/dL greater than the LDL cholesterol target. Literature References: 1. Expert Panel on Integrated Guidelines for Cardiovascular Health and Risk Reduction in Children and Adolescents. Pediatrics 2011;128:S213 2. NCEP Expert Panel. Circulation 2004;110:227 Current Interpretive Data was last revised on 2017. Chol/HDL ratio 6 [facility] Blood 02/02/2023 10:4 7 PM UNDERGRADUATE ADVISOR 02/02/2023 11:06 PM UNDERGRADUATE ADVISOR Edgard Barreto MD LAB BLOOD ORDERABLES Final Resul t [facility] [place] [address] from Last 3 Months or Most Recently Relevant to Health Maintenance Insurance [facility] Advance Directives For more information, please contact: [phone] * Full Code (Latest Code Status on File) Date Activated Date Inactivated Comments 02/03/2023 7:34 PM 02/05/2023 10:21 PM Care Teams Flaker Operator Relationship Specialty Start Date End Date Pj Mccarty MD PCP - General Family Practice 01/19/23 Gato Chen DPM [address] [place] [address] Consulting Physician Podiatry 02/11/23 Dalton Conde MD [address] [facility], [address] [address] Consulting Physician Pain Management 03/20/23
--- OUTSIDE RECORDS SUMMARY | 2024-05-28 15:46 | XMS_ITS | Continuity of Care Document ---
[facility] Address [address] [place] [address] Phone Care Team Providers Care Executive Casino Host Name Role Phone Screen, Clinician Unavailable Unavailable Procedures Procedure Date Void Encounter Advance Directives Directive Yes / No Effective Date File Name No Information Encounters Encounter Description Practice Location Reason(s) For Visit Diagnoses Date Provider Providers Copied on Encounter [facility], [address] [place], [place] [address], [place], [place], [id number], [place] tel:[phone] [place] No Information Screen Clinician . . Referring Provider: Provider Anette garduno Family History Family Member Type Diagnosis Age At Onset No Information Payers Payer name Insurance type Covered constitution party ID Authoriza tion(s) No Information Social History Type Description Quantity Date Captured Comments Sex Female Smoking Status No Information Chief Complaint And Reason For Visit No Information Reason For Referral Reason For Referral No Information History Of Present Illness Encounter Date Complaint History Of Prese nt Illness No Information Functional Status Date Functional Assessmen t No Information Instructions Date Instruction Additional Infor mation No Information Assessments Type Assessment Date No Information Patient Care Teams Name Effective Dates (start - stop) Status Members No Information
--- OUTSIDE RECORDS SUMMARY | 2024-05-28 15:46 | XMS_ITS | Clinical Summary ---
Author Organization [facility] Address [address] [place] [address] Care Team Providers Care Field Agronomist Name Role Phone Krishna Oliver DO Primary Care Provider [phone] Source Comments [facility],non-owned Affiliates and Associated Physician Practices is amultiple site organization consisting of ambulatory clinics and hospital sitesin [place], [place], [place] and [place]. This disclosure is being madepursuant to the Care Everywhere program and may not contain all information available regarding this patient. Last updated 17.[facility] Allergies No known active allergies Medications * Be aware that medications may not be up to date on this document. Alwaysverify current medications with the patient. Medication Sig Dispensed Refills Start Date End Date Status atorvastatin (LIPITOR) 40 MG tablet Take 20 mg by mouth at bedtime 05/29/2018 Active glimepiride (AMARYL) 2 MG tablet Take 2 mg by mouth daily with breakfast 06/12/2018 Active ibuprofen (MOTRIN) 800 MG tablet 800 mg every 8 hours as needed 05/28/2018 Active losartan (COZAAR) 100 MG tablet Take 100 mg by mouth once daily 08/14/2018 Active metFORMIN (GLUCOPHAGE) 1000 MG tablet 1,000 mg daily with breakfast 08/13/2018 Active traMADol (ULTRAM) 50 MG tablet 07/09/2018 Active empagliflozin-linaG LIPtin (GLYXAMBI) 10-5 MG tablet Take 1 tablet by mouth every morning Active Levothyroxine Sodium 175 MCG CAPS Take 1 tablet by mouth once daily Active nystatin/triamcinol one (MYCOLOG) 418282-9.1 UNIT/GM-% ointmentIndications :LSC (lichen simplex chronicus),History of candidiasis,Chronic vulvitis Use twice a week for 2 weeks & then daily. 60 g 2 08/27/2018 Active boric acid 600 mg capsuleIndications: LSC (lichen simplex chronicus),History of candidiasis,Chronic vulvitis Use to vagina 2-3 times a week to control symptoms. 30 capsule 1 08/27/2018 Active furosemide (LASIX) 20 MG tablet Take 20 mg by mouth once daily Active nystatin (MYCOSTATIN) 239343 UNIT/GM ointmentIndications :History of candidiasis APPLY EXTERNALLY TO THE AFFECTED AREA DAILY 30 g 09/15/2019 Active Active Problems Problem Noted Date Diagnosed Date LSC (lichen simplex chronicus) 08/27/2018 History of candidiasis 08/27/2018 Chronic vulvitis 08/27/2018 Family History Medical History Relation Name Comments CAD (Coronary Artery Disease) Father heart failure Pulmonary Embolism Father Cancer - Breast Mother Cancer - Colon Mother Diabetes - Type 2 Mother Hypertension Mother Relation Name Status Comments Father Maternal Grandfather Maternal Grandmother Mother Paternal Grandfather Paternal Grandmother Social History Tobacco Use Types Packs/Day Years Used Date Smoking Tobacco: Never Smokeless Tobacco: Never Alcohol Use Standard Drinks/Week Comments No 0 (1 standard drink = 0.6 oz pur e alcohol) Sex and Gender Information Value Date Recorded Sex Assigned at Not on file Gender Identity Not on file Sexual Orientation Not on file Last Filed Vital Signs Vital Sign Reading Time Taken Comments Blood Pressure 132/70 10/06/2018 2:22 PM CDT Pulse - - Temperature - - Respiratory Rate - - Oxygen Saturation - - Inhaled Oxygen Concentration - - Weight 85.7 kg (189 lb) 10/06/2018 2:22 PM CDT Height 170.2 cm (5' 7 ) 10/06/2018 2:22 PM CDT Body Mass Index 29.6 10/06/2018 2:22 PM CDT Plan of Treatment Health Maintenance Due Date Last Done Comments BONE DENSITY TESTING 1950 HEPATITIS C SCREENING 03/04/1966 DTAP/TDAP/TD VACCINES (1 - Tdap) 1967 PNEUMOCOCCAL VACCINE 50+ (1 of 1 - PCV) 1998 ZOSTER VACCINE (1 of 2) 1998 SCREENING FOR DIABETES 08/27/2018 Respiratory Syncytial Virus (RSV) Vaccine Pt: or over 60 yrs (1 - 1-dose 75+ series) 2023 COVID-19 VACCINE (2023-2 5 season) 2023 INFLUENZA VACCINE (#1) 2023 DEPRESSION SCREENING 03/10/2024 HEPATITIS B VACCINE Aged Out No longe r eligible based on patient's age to complete this topic HIB VACCINE Aged Out No longer eligi ble based on patient's age to complete this topic HPV VACCINE Aged Out No longer eligi ble based on patient's age to complete this topic MENINGOCOCCAL (Group B) VACC INE SHARED DECISION-MAKING Aged Out No longer eligibl e based on patient's age to complete this topic MENINGOCOCCAL GROUPS A/C/Y/W VACCINE Aged Out No longer eligible b ased on patient's age to complete this topic Care Teams Field Agronomist Relationship Specialty Start Date End Date Krishna Oliver DO [address] [place] [id number] PCP - General 08/13/18
--- OUTSIDE RECORDS SUMMARY | 2024-05-28 15:46 | XMS_ITS | Clinical Summary ---
Author Organization [facility] [place] [facility] Address [address] [place] [address] Care Team Providers Care Electromechanisms Design Drafter Name Role Phone Pj Mccarty MD Primary Care Provider [phone] Gato Chen DPM Unavailable [phone] Dalton Conde MD Unavailable Allergies No known [...] mg. Assessment & Plan (02/04/2023 5:31 PM COMPUTING CONSULTANT): - Cont home rosuvastatin - Low Fat; Low Cholesterol diet Spinal stenosis of lumbar re gion, unspecified whether neurogenic claudication present 02/03/2023 Assessment & Plan (02/05/2023 6:45 PM COMPUTING CONSULTANT): [place] and [...] mg. Assessment & Plan (02/04/2023 5:24 PM COMPUTING CONSULTANT): - cw home losartan Diabetes mellitus type II, controlled 02/03/2023 Assessment & Plan (02/04/2023 5:34 PM COMPUTING CONSULTANT): Hgb1c 7.2%, at home on Glipizide 10 [...] 02/03/2023 Assessment & Plan (02/04/2023 5:25 PM COMPUTING CONSULTANT): - Cw home levothyroxine Chronic vulvitis 08/27/2018 History of candidiasis 08/27/2018 LSC (lichen simplex chronicus) 08/27/2018 Immunizations Immunization Administration Dates Next Due Influenza, Trivalent, Adjuva nted, Intramuscular 12/22/2017,12/21/2017 Influenza, Trivalent, High D ose, Split, Preservative Free, Intramuscular 12/27/2018,01/01/2015 Influenza, Trivalent, IM (MDV) 12/23/2013,2012,12/29/2011 Influenza, Unspecified 01/12/2014 Pneumococcal Polysaccharide PPV23 03/18/2014 ZOSTER LIVE 01/01/2015 Surgical History Surgery Date Site/Laterality Comments OVARIAN CYST DRAINAGE DILATION AND CURETTAGE OF UTERUS REPLACEMENT TOTAL KNEE REPLACEMENT TOTAL KNEE Medical History Medical History Date Comments Diabetes (HCC) Hypercholesteremia Thyroid dysfunction HTN (hypertension) Lichen simplex Family History Medical History Relation Name Comments Heart failure Father Pulmonary embolism Father Heart attack Maternal Grandfather Stroke Maternal Grandmother Breast cancer Mother Colon cancer Other Stroke Paternal Grandmother Breast cancer Sister Relation Name Status Comments Father Maternal Grandfather Maternal Grandmother Mother Other Paternal Grandmother Sister Social History Tobacco Use Types Packs/Day Years [...] on file Legal Sex Female 1:37 AM COMPUTING CONSULTANT Gender Identity Not on file Sexual Orientation Not on file Obstetrics History Para Term AB IAB SAB Ectopic Multiple Livin g Live Births 6 6 Date Outcome GA Total Labor Labor/2nd/3rd Weight Sex Type Anes PTL Jerrica A1 A5 Name Clin Para Para Para Para Para Para Comments 02/26/52 Last Filed Vital Signs Vital Sign Reading [...] 12/29/2023 3:51 PM CDT Plan of Treatment Health Maintenance Due Date Last Done Comments Albumin Creatinine Ratio, Urine 1948 Depression Screening 1950 Hepatitis C Screening 1948 Osteoporosis Screening-Bone Density Scan 1950 Dilated Eye Exam 1948 Foot Exam 1948 DTaP/Tdap/Td Vaccine (1 - Tdap) 1959 Hepatitis B Screening 1966 Zoster Vaccine (2 of 3) 02/26/2015 01/01/2015 Pneumococcal vaccine 65+ (2 of 2 - PCV) 03/18/2015 03/18/2014 Hemoglobin A1C 08/04/2023 02/03/2023, 02/02/2023 Influenza Vaccine (#1) 2023 9, 12/22/2017, 12/21/2017, Additional history exists Lipid Panel 02/03/2024 02/02/2023, 07/27/2020 eGFR 02/05/2024 02/04/2023, 01/09, 01/19/2023 Fall Risk Assessment 02/06/2024 02/05/2023 Well Visit 65+ 12/28/2024 12/29/2023, 12/08, 09/24/2021, Additional history exists Goals Goal Patient Goal Type Associated Problems Recent Progress Patient-Stated? Author ACO CC Goal - Level of ADL/IADL assistance will meet patient's needs ACO Care Management Mindy Fry, RN Note: Problem: Inadequate assistance to manage [...] Diagnosis Comments EGFR Routine 02/04/2023 8:39 PM COMPUTING CONSULTANT HEMOGLOBIN A1C STAT 02/02/2023 10:47 PM COMPUTING CONSULTANT LIPID PANEL STAT 02/02/2023 10:47 PM COMPUTING CONSULTANT from Last 3 Months or Most Recently Relevant to Health Maintenance Results * eGFR (02/04/2023 8:39 PM COMPUTING CONSULTANT) eGFR 76 >=60 mL/min/1. 73 m2 [facility] Comment: Interpretive Data Reference Interval Normal >/= [...] last reviewed 2021. Blood 02/04/2023 8:39 PM COMPUTING CONSULTANT 02/04/2023 9:56 PM COMPUTING CONSULTANT us Kylie Milner MD LAB BLOOD ORDERABLES F inal Result [facility] [address] [facility] Department [place] [address] * (ABNORMAL) Hemoglobin A1c (02/02/2023 10:47 PM COMPUTING CONSULTANT) Hgb A1C 7.2(H) 4.0 - 5.6 % [facility] Estimated Average Glucose 160 mg/dL [facility] Comment: The ADA recommends reporting an estimated Average Glucose (eAG) with all Hemoglobin A1c results using the equation derived from a study of 507 normal and diabetic adults. Minority populations were underrepresented and children were not included. (Diabetes Care 2020; 43(S1): S66-S76). The eAG is not equivalent to a fasting glucose. Blood 02/02/2023 10:4 7 PM COMPUTING CONSULTANT 02/02/2023 11:06 PM COMPUTING CONSULTANT us Edgard Barreto MD LAB BLOOD ORDERABLES Final Resul t [facility] [address] [facility] Department [place] [address] * (ABNORMAL) Lipid panel (02/02/2023 10:47 PM COMPUTING CONSULTANT) Cholesterol 248(H) 30 - 199 mg/dL [facility] Comment: Interpretive Data Ages < or = [...] revised on 2017. Triglycerides 213(H) <=149 mg/dL [facility] Comment: Interpretive Data Ages < or = [...] revised on 2017. HDL 39(L) >=40 mg/dL [facility] Comment: Interpretive Data Ages < or = [...] on 2017. LDL, calculated 166(H) <=129 mg/dL [facility] Comment: Interpretive Data Ages < or [...] revised on 2017. Non-HDL Cholesterol 209 mg/dL [facility] Comment: Interpretive Data Ages < or [...] last revised on 2017. Chol/HDL ratio 6 [facility] Blood 02/02/2023 10:4 7 PM COMPUTING CONSULTANT 02/02/2023 11:06 PM COMPUTING CONSULTANT us Edgard Barreto MD LAB BLOOD ORDERABLES Final Resul t [facility] [address] [facility] Department [place] [address] from Last 3 Months or Most Recently Relevant to Health Maintenance Insurance [facility] Member Subscriber Plan / Payer (Ef fective 2022-Present) Name:Minnie Lloyd Relation to Subscriber:Self Name:Minnei Lloyd Payer ID:[id number] (NAIC) Type:MEDICARE RISK OTHER Address: [address] [place] [id number] [facility] Advance Directives For more information, please contact: [phone] * Full Code (Latest Code Status on File) Date Activated Date Inactivated Comments 02/03/2023 7:34 PM 02/05/2023 10:21 PM Care Teams Electromechanisms Design Drafter Relationship Specialty Start Date End Date Pj Mccarty MD PCP - General Family Practice 01/19/23 Gato Chen DPM [address] [place] [address] Consulting Physician Podiatry 02/11/23 Dalton Conde MD [address] [facility], [address] [address] Consulting Physician Pain Management 03/20/23
== END 2024-05-28 15:43 | disposition home or self-care (01) ==
LOC: ANHIMG 15:44
PROVIDERS: PCP Family Medicine; Visit Provider Obstetrics & Gynecology
DX: Z12.31 Encounter for screening mammogram for malignant neoplasm of breast (principal)
CPT/HCPCS: 77063; 77067